=== PATIENT | female | born 1990 | race African-American/Black ===

== ENCOUNTER 2016-10-28 23:31 | Emergency (ER) | payer MEDICAID ==
[~2016-10-28] VITALS: Ht 160 cm; Wt 59.0 kg
[2016-10-28 23:42] VITALS: Ht 160 cm; Wt 59.0 kg
--- NOTE | 2016-10-29 02:52 | ERA ---
ER Documentation Chief Complaint Date/Time DATE: 10/29/16 TIME: 02:51 Chief Complaint Depression HPI The patient is a 26-year-old female, presenting to the ER because of depression. She is not sure when asked whether she is suicidal. She was admitted to psychiatric hospital about 10 days ago where she was discharged with Zoloft. He complains that Zoloft do not help her. Auditory, visual hallucination, headache, fever, neck pain, chest pain, abdominal pain, vomiting , diarrhea, constipation. She does smoke socially, denies drinking illicit drug Past medical history: Bipolar disorder, depression Past surgical history: ROS All systems reviewed and are negative except as per history of present illness. Medications Home Meds No Active Prescriptions or Reported Meds Allergies Allergies: Coded Allergies: aripiprazole (Verified Allergy, Intermediate, 10/16/16) TONGUE SWELLS acetaminophen (Verified Allergy, Unknown, 10/16/16) haloperidol (Verified Allergy, Unknown, 10/16/16) fluphenazine (Verified Adverse Reaction, Intermediate, 10/16/16) TONGUE SWELLS PMhx/Soc History of Surgery: Yes (C SECTION ) Anesthesia Reaction: No Hx Neurological Disorder: No Hx Respiratory Disorders: Yes (ASTHMA) Hx Cardiac Disorders: No Hx Psychiatric Problems: Yes (BIPOLAR, DEPRESSION, ANXIETY) Hx Miscellaneous Medical Probl: No Hx Alcohol Use: No Hx Substance Use: No Hx Tobacco Use: Yes (1-2 PACKS/ DAY ) Smoking Status: Current every day smoker Physical Exam Vitals Vital Signs Date Time Temp Pulse Resp B/P Pulse Ox O2 Delivery O2 Flow Rate FiO2 10/28/16 23:42 98.4 61 18 110/51 100 Physical Exam Const: No acute distress. Head: Atraumatic. Eyes: Normal Conjunctiva. ENT: Normal External Ears, Nose and Mouth. Neck: Full range of motion. No meningismus. Resp: Clear to auscultation bilaterally. Cardio: Regular rate and rhythm, no murmurs. Abd: Soft, non distended, normal bowel sounds, non tender. Skin: No petechiae or rashes. Back: No midline or flank tenderness. Ext: No cyanosis, or edema. Neur: Awake and alert. No focal deficit Psych: Depressed and suicidal Departure Diagnosis: Primary Impression: Depression Additional Impression: Suicidal ideation Condition: Stable Comments She is awaiting for telepsychiatrist evaluation ISAIAS ESCOBEDO MD Oct 29, 2016 02:52
[2016-10-29 03:39] LABS: ADD UMIC NO; URINE BILIRUBIN (Dip) NEGATIVE (NEGATIVE); URINE BLOOD (Dip) NEGATIVE (NEGATIVE); URINE COLOR LT. YELLOW (YELLOW); URINE GLUCOSE (Dip) NEGATIVE (NEGATIVE); URINE KETONES (Dip) 40 (NEGATIVE); URINE LEUKOCYTE ESTERASE (Dip) NEGATIVE (NEGATIVE); URINE NITRITE (Dip) NEGATIVE (NEGATIVE); URINE TOTAL PROTEIN (Dip) NEGATIVE (NEGATIVE); URINE UROBILINOGEN (Dip) 0.2 E.U./dL (0.1-1.0)
[2016-10-29] MEDS ORDERED: OLAN5TAB5 PO ×2 (03:56→04:00)
[2016-10-29 04:08] VITALS: BP 116/56; PULSE 60; RESP 18
--- NOTE | 2016-10-29 04:13 | PSY ---
Date/Time of Note Date/Time of Note DATE: 10/29/16 TIME: 04:04 Psychiatric Subjective Eval Consent Pt consented to telemedicine: Yes Subjective Evaluation Patient location: emergency Chief Complaint: "i need medication for depression" denies si and hi Reason for consult: depression History of present illness patient is a 26 yo female with PPH of bipolar do who has been coming to the ER several times for similar complaint, she states that her boyfriend sent her to the ER because she was 'unstable ', she states that she has been feeling depressed and paranoid, denies hearing voices, states that she wants to be on medication for depression and anger, she denies any si or hi, she states that she has been feeling anxious but she sleeps well . she alert and oriented, logical and goal oriented. Past psychiatric history several past admissions Hospitalization: yes Family History denies Medical history Problems Medical Problems: (1) Abdominal pain Status: Acute (2) Asymptomatic bacteriuria during Status: Acute (3) Bipolar disorder Status: Acute (4) Cystitis Status: Acute (5) Depression Status: Acute (6) Depression Status: Acute (7) Depression Status: Acute (8) Depression Status: Acute (9) Depression Status: Acute (10) Depression Status: Acute (11) Depression Status: Acute (12) Depression Status: Acute (13) First trimester Status: Acute (14) Mood disorder Status: Acute (15) Suicidal ideation Status: Acute (16) Suicidal ideation Status: Acute (17) Suicidal ideation Status: Acute (18) Suicidal ideation Status: Acute (19) Suicidal ideation Status: Acute (20) Suicidal ideation Status: Acute (21) Suicidal ideation Status: Acute (22) Suicidal ideation Status: Acute Allergies: Coded Allergies: aripiprazole (Verified Allergy, Intermediate, 10/16/16) TONGUE SWELLS acetaminophen (Verified Allergy, Unknown, 10/16/16) haloperidol (Verified Allergy, Unknown, 10/16/16) fluphenazine (Verified Adverse Reaction, Intermediate, 10/16/16) TONGUE SWELLS Social History Marital status: single Level of education: hs DPA/Conservatorship: No Occupation/Correction: unemployed Psychiatric Objective Eval Review of Systems: Review of Systems: Not Applicable Physical Examination: Physical Examination: Applicable Sleep: Adequate Appetite: Adequate Energy: Adequate Interest: Adequate Mental Status Examination: Appearance: Groomed Eye Contact: Good Psychomotor Activity: Normal Behavior: Cooperative Speech: Clear AFFECT: Appropriate Mood: Depressed Though Process: Linear Thought Content: Delusions Suicidal: No Homicidal: No On 72 hour hold: No Orientation: x3 Cognition: Alert Insight: Intact Judgement: Intact Attention Span: Intact Laboratory Results Laboratory Tests Test 10/29/16 02:53 Urine Bilirubin NEGATIVE Urine Clarity CLEAR Urine Color LT. YELLOW Urine Glucose NEGATIVE% Urine Hemoglobin NEGATIVE Urine Ketones 40 Urine Leukocyte Esterase NEGATIVE Urine Nitrite NEGATIVE Urine Specific [place] >=1.030 Urine Total Protein NEGATIVE Urine Urobilinogen 0.2 E.U./dL Urine pH 6.0 Assessment and Plan Assessment/Diagnosis [place] I: bipolar do nos [place] II: deferred [place] III: as per record [place] IV: poor social support [place] V: gaf 25 Recommendation/Plan Medication Management please give patient zyprexa 5 mg po bid Follow-up/Disposition In my opinion,for this patient, outpatient care is the least restrictive option. Based on available evidence, this condition CAN be safely treated at a lower level of care effective today. Patient is stable without clear and convincing evidence of imminent danger due to mental illness that require acute inpatient psychiatric care as the least restrictive alternative. Please discharge patient with referral for follow up to a outpatient mental health clinic for psychotherapy and medication. JAZMIN VILLALBA MD Oct 29, 2016 04:13
[2016-10-29 04:27] LABS: BARBITURATES Negative (NEGATIVE); BENZODIAZEPINES Negative (NEGATIVE); CANNABINOIDS Negative (NEGATIVE); COCAINE Negative (NEGATIVE); OPIATES Negative (NEGATIVE)
== END 2016-10-29 04:11 | disposition home or self-care (01) ==
LOC: FTE 23:31 → E/R 10-29 04:11
DX: F32.9 Major depressive disorder, single episode, unspecified (principal); F17.210 Nicotine dependence, cigarettes, uncomplicated; J45.909 Unspecified asthma, uncomplicated
CPT/HCPCS: 80307; 81003; Z7502; 99283

== ENCOUNTER 2016-11-08 23:24 | Emergency (ER) | payer MEDICAID ==
[~2016-11-08] VITALS: Ht 157.5 cm; Wt 54.0 kg
[~2016-11-08 23:24] MED LIST: OLAN5TAB5 PO
[2016-11-08 23:25] VITALS: Ht 157.5 cm; Wt 54.0 kg
[2016-11-09] MEDS ORDERED: CEFTRIAXONE 250 MG INJ IM ONE (00:30)
[2016-11-09] MEDS ORDERED: AZITHROMYCIN 250 MG TAB PO ONE (00:30)
[2016-11-09] MEDS ORDERED: LIDOCAINE 1% (MDV) 20 ML INJ SC ONE (00:30)
--- NOTE | 2016-11-09 01:51 | ERD ---
ER Documentation Chief Complaint Date/Time DATE: 11/09/16 TIME: 01:47 Chief Complaint pelvic pain w/dysuria x 2 weeks HPI Patient is a 26-year-old female who presents to the ED with bilateral pelvic pain that started yesterday, dysuria, CVA tenderness and abnormal vaginal discharge. She states that she has had unprotected sex since the beginning of this month. She states that her last normal menstrual period was 10/25/16. She complains of dysuria, burning and urgency x 10 days. She also complains of low back pain. Tactile fevers at home. She states that she has had a yellow vaginal discharge for the last month. She would like to get tested for STDs. She denies abdominal pain, nausea, vomiting or diarrhea. She denies chest pain , shortness of breath or difficulty breathing. She denies headache, dizziness. She denies rashes. Patient has been seen here multiple times for depression and SI, however she denies feeling depressed today or anxious. Denies suicidal ideations. Denies harming herself or others. ROS All systems reviewed and are negative except as per history of present illness. Medications Home Meds Active Scripts Doxycycline Hyclate* (Doxycycline Hyclate*) 100 Mg Tablet.dr, 100 MG PO BID for 7 Days, TAB Prov:JOLENE RAYMOND PA-C 11/09/16 Ciprofloxacin Hcl* (Ciprofloxacin Hcl*) 500 Mg Tablet, 500 MG PO BID for 7 Days , TAB Prov:JOLENE RAYMOND PA-C 11/09/16 Phenazopyridine Hcl* (Pyridium*) 100 Mg Tab, 100 MG PO TID Y for URINARY PAIN, # 8 TAB Prov:JOLENE RAYMOND PA-C 11/09/16 Olanzapine* (Zyprexa*) 5 Mg Tablet, 5 MG PO BID WITH MEALS for 14 Days, TAB Prov:ISAIAS ESCOBEDO MD 10/29/16 Olanzapine* (Zyprexa*) 5 Mg Tablet, 5 MG PO BID, #14 TAB Prov:ISAIAS ESCOBEDO MD 10/29/16 Allergies Allergies: Coded Allergies: aripiprazole (Verified Allergy, Intermediate, 10/16/16) TONGUE SWELLS acetaminophen (Verified Allergy, Unknown, 10/16/16) haloperidol (Verified Allergy, Unknown, 10/16/16) fluphenazine (Verified Adverse Reaction, Intermediate, 10/16/16) TONGUE SWELLS PMhx/Soc History of Surgery: Yes (C SECTION ) Anesthesia Reaction: No Hx Neurological Disorder: No Hx Respiratory Disorders: Yes (ASTHMA) Hx Cardiac Disorders: No Hx Psychiatric Problems: Yes (BIPOLAR, DEPRESSION, ANXIETY) Hx Miscellaneous Medical Probl: No Hx Alcohol Use: No Hx Substance Use: No Hx Tobacco Use: Yes (1-2 PACKS/ DAY ) Smoking Status: Current every day smoker Physical Exam Vitals Vital Signs Date Time Temp Pulse Resp B/P Pulse Ox O2 Delivery O2 Flow Rate FiO2 11/09/16 03:32 101.6 70 18 116/70 100 Room Air 11/09/16 02:55 102.5 11/08/16 23:25 100.2 102 18 120/62 100 Physical Exam GENERAL: Well-developed, well-nourished female. Appears in mild distress. HEAD: Normocephalic, atraumatic. EYES: Pupils are equally reactive bilaterally. EOMs grossly intact. No conjunctival erythema. ENT: Moist mucous membranes. No uvula deviation. No kissing tonsils. No exudates. NECK: Supple. No lymphadenopathy or thyromegaly. No meningismus. negative kernig. negative brudinski. LUNG: Clear to auscultation bilaterally. No rhonchi, wheezing, rales or coarse breath sounds. HEART: Regular rate and rhythm. No murmurs, rubs or gallops. ABDOMEN: No scars, ecchymosis or rashes noted. Soft, nontender, and nondistended. Positive bowel sounds in all four quadrants. No rebound tenderness , no guarding. (-) McBurneys point tenderness. suprapubic tenderness. right CVA tenderness. PELVIC EXAM: yellow/green discharge, no petechiae on cervic. tenderness in bilateral pelvic area. no CMT BACK: No midline tenderness. Extremities: Equal pulses bilaterally. No peripheral clubbing, cyanosis or edema. No unilateral leg swelling. NEUROLOGIC: Alert and oriented. Moving all four extremities. 5/5 strength in all extremities. Normal speech. Steady gait. SKIN: Normal color. Warm and dry. No rashes or lesions. Capillary refill < 2 seconds Results 24 hrs Laboratory Tests Test 11/09/16 01:25 Urine Bacteria MANY Urine Bilirubin NEGATIVE Urine Clarity CLEAR Urine Color LT. YELLOW Urine Glucose NEGATIVE% Urine Hemoglobin 2+ Urine Ketones NEGATIVE Urine Leukocyte Esterase 3+ Urine Microscopic RBC 25-50/HPF Urine Microscopic WBC >200/HPF Urine Nitrite POSITIVE Urine Specific [place] 1.015 Urine Squamous Epithelial Cells MODERATE Urine Total Protein 1+ Urine Urobilinogen 1.0 E.U./dL Urine pH 7.0 Current Medications Medications (Trade) Dose Ordered Sig/Kae Route PRN Reason Start Time Stop Time Status Last Admin Dose Admin Ceftriaxone Sodium (Rocephin) 250 mg ONCE ONCE IM 11/09/16 00:30 11/09/16 00:31 DC 11/09/16 01:18 Lidocaine (Xylocaine 1% (Mdv) 20 ml) 20 ml ONCE ONCE SC 11/09/16 00:30 11/09/16 00:31 DC 11/09/16 01:19 Azithromycin (Zithromax) 1,000 mg ONCE ONCE PO 11/09/16 00:30 11/09/16 00:31 DC 11/09/16 00:32 Ketorolac Tromethamine (Toradol) 60 mg ONCE STAT IM 11/09/16 02:59 11/09/16 03:00 DC 11/09/16 03:07 Procedures/MDM ER COURSE: I kept the patient and/or family informed of laboratory and diagnostic imaging results throughout the emergency room course. EKG, MONITORS, & DIAGNOSTIC IMAGING: [place] [id number] Radiology Main Line: [phone] DIAGNOSTIC IMAGING REPORT Patient: JAMMIE KILPATRICK : 1990 Age: 26 Sex: F MR #: [id number] DOS: 11/09/16 0021 Ordering MD: JOLENE RAYMOND PA-C Location: [facility] Room/Bed: PROCEDURE: ULTRASOUND PELVIS CLINICAL INDICATION: 26-year-old female with pelvic pain. TECHNIQUE: Multiple sonographic images of the pelvis were obtained utilizing a transabdominal and endovaginal technique. The images were reviewed on a PACS workstation. COMPARISON: None. FINDINGS: The uterus is visualized and measures 7.3 x 3.0 x 3.6 cm. The endometrial echo complex is within normal limits and measures 2.3 mm. There is mild free fluid within the cul-de-sac. The right ovary has a normal echotexture and measures 3.2 x 1.4 x 2.6 cm. The left ovary has a normal echotexture and measures 3.5 x 2.4 x 2.7 cm. There is a left ovarian follicular cyst present measuring 16 x 9 x 16 mm. There is flow identified within the ovaries bilaterally. No adnexal masses are noted. IMPRESSION: 1. Mildly prominent left ovarian follicular cyst. 2. Mild free fluid. .Rome Barba MD, Date Time Electronically viewed and signed by .Rome Barba MD, on 11/09/2016 02:13 .M/ CC: JOLENE RAYMOND PAElayne MEDICATIONS: Rocephin, azithromycin patient tolerated occasional well with no adverse reaction LAB INTERPRETATION: Urine test was negative. Urine showed positive nitrites, 3+ leukocytes MEDICAL DECISION MAKING: This is a 26-year-old female who presents with pelvic pain, urinary symptoms and vaginal discharge. Vital signs were reviewed. Patient is afebrile. Patient is not hypoxic. She has a UTI and cervicitis. Low suspicion for ovarian torsion, PID, tuboovarian abscess, ectopic , bowel obstruction, pyelonephritis,appendicitis, UTI, nephroliathisis, septic stone, obstructed stone. Low suspicion for ectopic , , molar , endometriosis, PID, placenta previa, placenta abruptia, preeclampsia, eclampsia , anemia, endometritis. i have consulted with Dr. Valadez regarding this patient who reviewed her labs. Patient does not need to be admitted at this time and no blood work is needed. Dr. Valadez states to send patient home with docyclicine and ciprofloxacin, pending gonorrhea chlamydia results. DISCHARGE: At this time, patient is stable for discharge and outpatient management with no new complaints during the ER course. Patient was sent home with doxycycline and ciprofloxacin. Patient will be discharged home with instructions to recheck for new or worsening symptoms such as fever, nausea, weakness, LOC and to follow up with primary care in the next 1-2 days. Patient was advised to return to the ER for any new or worsening symptoms. Plan was discussed and patient and/or family understands and agrees. Home instructions were given. Departure Diagnosis: Primary Impression: Cervicitis Condition: Stable JOLENE RAYMOND PA-C Nov 09, 2016 01:51
[2016-11-09 01:56] LABS: ADD UMIC YES; URINE BILIRUBIN (Dip) NEGATIVE (NEGATIVE); URINE BLOOD (Dip) 2+ (NEGATIVE); URINE COLOR LT. YELLOW (YELLOW); URINE GLUCOSE (Dip) NEGATIVE (NEGATIVE); URINE KETONES (Dip) NEGATIVE (NEGATIVE); URINE LEUKOCYTE ESTERASE (Dip) 3+ (NEGATIVE); URINE NITRITE (Dip) POSITIVE (NEGATIVE); URINE TOTAL PROTEIN (Dip) 1+ (NEGATIVE); URINE UROBILINOGEN (Dip) 1.0 E.U./dL (0.1-1.0)
[2016-11-09] MEDS ORDERED: CIPR500T4 PO ×2 (02:03→02:21)
[2016-11-09 02:04] LABS: BACTERIA,URINE MANY; SQUAMOUS EPITHELIAL CELL,UR MODERATE; URINE RBCS 25-50 /HPF ([, 0])
[2016-11-09] MEDS ORDERED: PHEN-537 PO (02:04)
--- NOTE | 2016-11-09 02:13 | RADRPT ---
PROCEDURE: ULTRASOUND PELVIS CLINICAL INDICATION: 26-year-old female with pelvic pain. TECHNIQUE: Multiple sonographic images of the pelvis were obtained utilizing a transabdominal and endovaginal technique. The images were reviewed on a PACS workstation. COMPARISON: None. FINDINGS: The uterus is visualized and measures 7.3 x 3.0 x 3.6 cm. The endometrial echo complex is within nor mal limits and measures 2.3 mm. There is mild free fluid within the cul-de-sac. The right ovary has a normal echotexture and measures 3.2 x 1.4 x 2.6 cm. The left ovary has a normal echotexture and m easures 3.5 x 2.4 x 2.7 cm. There is a left ovarian follicular cyst present measuring 16 x 9 x 16 m m. There is flow identified within the ovaries bilaterally. No adnexal masses are noted. IMPRESSION: 1. Mildly prominent left ovarian follicular cyst. 2. Mild free fluid. .Rome Barba MD, MD Date Time Electronically viewed and signed by .Rome Barba MD, on 11/09/2016 02:13 .M/
[2016-11-09] MEDS ORDERED: DOXY100T20 PO (02:21)
[2016-11-09] MEDS ORDERED: KETOROLAC 60 MG INJ IM STA (02:59)
[2016-11-09 03:32] VITALS: BP 116/70; PULSE 70; RESP 18; TEMP 101.6
== END 2016-11-09 03:33 | disposition home or self-care (01) ==
LOC: FTE 23:24
DX: N72 Inflammatory disease of cervix uteri (principal); J45.909 Unspecified asthma, uncomplicated; F17.210 Nicotine dependence, cigarettes, uncomplicated
CPT/HCPCS: 76830; 76856; 81001; 96372; J0696; J1885; Z7502; Z7610; 81003

== ENCOUNTER 2016-11-26 00:03 | Emergency (ER) | payer MEDICAID ==
[~2016-11-26] VITALS: Ht 157.5 cm; Wt 45.0 kg
[~2016-11-26 00:03] MED LIST changes: +CIPR500T4 PO; +DOXY100T20 PO; +PHEN-537 PO
[2016-11-26 00:11] VITALS: Ht 157.5 cm; Wt 45.0 kg
--- NOTE | 2016-11-26 03:41 | ERA ---
ER Documentation Chief Complaint Date/Time DATE: 11/26/16 TIME: 03:41 Chief Complaint wants meds for for in March The patient is a 26-year-old female, presenting to the ER because of depression. She is suicidal. She complains that Zoloft do not help her. She denies auditory, visual hallucination, headache, fever, neck pain, chest pain, abdominal pain, vomiting, diarrhea, constipation. She does smoke socially, denies drinking illicit drug Past medical history: Bipolar disorder, depression Past surgical history: C-sectio ROS All systems reviewed and are negative except as per history of present illness. Medications Home Meds Active Scripts Doxycycline Hyclate* (Doxycycline Hyclate*) 100 Mg Tablet.dr, 100 MG PO BID for 7 Days, TAB Prov:JOLENE RAYMOND PA-C 11/09/16 Ciprofloxacin Hcl* (Ciprofloxacin Hcl*) 500 Mg Tablet, 500 MG PO BID for 7 Days , TAB Prov:JOLENE RAYMOND PA-C 11/09/16 Phenazopyridine Hcl* (Pyridium*) 100 Mg Tab, 100 MG PO TID Y for URINARY PAIN, # 8 TAB Prov:JOLENE RAYMOND PA-C 11/09/16 Olanzapine* (Zyprexa*) 5 Mg Tablet, 5 MG PO BID WITH MEALS for 14 Days, TAB Prov:ISAIAS ESCOBEDO MD 10/29/16 Olanzapine* (Zyprexa*) 5 Mg Tablet, 5 MG PO BID, #14 TAB Prov:ISAIAS ESCOBEDO MD 10/29/16 Allergies Allergies: Coded Allergies: aripiprazole (Verified Allergy, Intermediate, 10/16/16) TONGUE SWELLS acetaminophen (Verified Allergy, Unknown, 10/16/16) haloperidol (Verified Allergy, Unknown, 10/16/16) fluphenazine (Verified Adverse Reaction, Intermediate, 10/16/16) TONGUE SWELLS PMhx/Soc History of Surgery: Yes (C SECTION ) Anesthesia Reaction: No Hx Neurological Disorder: No Hx Respiratory Disorders: Yes (asthma) Hx Cardiac Disorders: No Hx Psychiatric Problems: Yes (bipolar) Hx Miscellaneous Medical Probl: No Hx Alcohol Use: No Hx Substance Use: No Hx Tobacco Use: Yes Smoking Status: Current some day smoker Physical Exam Vitals Vital Signs Date Time Temp Pulse Resp B/P Pulse Ox O2 Delivery O2 Flow Rate FiO2 11/26/16 00:11 98.3 58 16 116/59 100 Physical Exam Const: No acute distress. Head: Atraumatic. Eyes: Normal Conjunctiva. ENT: Normal External Ears, Nose and Mouth. Neck: Full range of motion. No meningismus. Resp: Clear to auscultation bilaterally. Cardio: Regular rate and rhythm, no murmurs. Abd: Soft, non distended, normal bowel sounds, non tender. Skin: No petechiae or rashes. Back: No midline or flank tenderness. Ext: No cyanosis, or edema. Neur: Awake and alert. No focal deficit Psych: Depressed and suicidal. Result Diagram: 11/26/1639911/26/16399 Results 24 hrs Laboratory Tests Test 11/26/16 04:00 Acetaminophen Level < 10.0ug/ml Alanine Aminotransferase (ALT/SGPT) 46IU/L Albumin 4.3g/dl Albumin/Globulin Ratio 1.13 Alkaline Phosphatase 76IU/L Anion Gap 17 Aspartate Amino Transf (AST/SGOT) 43IU/L Basophils # 0.010^3/ul Basophils % 0.5% Blood Morphology Comment Blood Urea Nitrogen 14mg/dl Calcium Level 9.4mg/dl Carbon Dioxide Level 26mmol/L Chloride Level 106mmol/L Creatinine 0.65mg/dl Direct Bilirubin 0.00mg/dl Eosinophils # 0.010^3/ul Eosinophils % 0.5% Ethyl Alcohol Level < 10.0mg/dl Globulin 3.80g/dl Glucose Level 95mg/dl Hematocrit 40.1% Hemoglobin 13.1g/dl Indirect Bilirubin 0.0mg/dl Lymphocytes # 2.810^3/ul Lymphocytes % 39.0% Mean Corpuscular Hemoglobin 25.4pg Mean Corpuscular Hemoglobin Concent 32.6g/dl Mean Corpuscular Volume 77.9fl Mean Platelet Volume 10.6fl Monocytes # 0.410^3/ul Monocytes % 5.2% Neutrophils # 3.910^3/ul Neutrophils % 54.8% Nucleated Red Blood Cells # 0.010^3/ul Nucleated Red Blood Cells % 0.0/100WBC Platelet Count 78820^3/UL Potassium Level 3.7mmol/L Red Blood Count 5.1510^6/ul Red Cell Distribution Width 13.5% Salicylates Level < 1.0mg/dl Sodium Level 145mmol/L Total Bilirubin 0.0mg/dl Total Protein 8.1g/dl White Blood Count 7.110^3/ul Procedures/MDM MEDICAL MAKING DECISION: The patient is a 26-year-old female, presenting with acute suicidal and depression. The differential diagnoses considered include but are not limited to psychosis, drug-induced psychosis, medical noncompliance , decompensated psychiatric illness Departure Diagnosis: Primary Impression: Suicidal ideation Additional Impression: Depression Condition: Good Comments Consultation: She was evaluated by telepsychiatrist Dr Gonzales who recommended discharge the patient with Zyprexa I discussed the findings with the patient. I advised the patient to follow-up with the primary physician in about 1-2 days, sooner if needed and return if any concern. ISAIAS ESCOBEDO MD Nov 26, 2016 03:41
[2016-11-26 04:44] LABS: BASOPHILS % 0.5 % (0.0-2.0); CONDITION 1; EOSINOPHILS % 0.5 % (0.0-7.0); HEMATOCRIT 40.1 % (37.0-47.0); HEMOGLOBIN 13.1 g/dl (12.0-16.0); LH ANALYZER COMMENTS 1; LYMPHOCYTES # 2.8 10^3/ul (0.8-2.9); MEAN CORPUSCULAR HEMOGLOBIN 25.4 pg (29.0-33.0); MEAN CORPUSCULAR HGB CONC 32.6 g/dl (32.0-37.0); MEAN CORPUSCULAR VOLUME 77.9 fl (82.0-101.0); MEAN PLATELET VOLUME 10.6 fl (7.4-10.4); MONOCYTE # 0.4 10^3/ul (0.3-0.9); MONOCYTES % 5.2 % (0.0-11.0); NEUTROPHIL # 3.9 10^3/ul (1.6-7.5); NEUTROPHILS % 54.8 % (39.0-77.0); PLATELET COUNT 279 10^3/UL (140-440); RED BLOOD COUNT 5.15 10^6/ul (4.20-5.40); RED CELL DISTRIBUTION WIDTH 13.5 % (11.5-14.5); UNCORRECTED WBC 7.1 10^3/ul (4.8-10.8); WHITE BLOOD COUNT 7.1 10^3/ul (4.8-10.8)
[2016-11-26 04:46] LABS: ALBUMIN 4.3 g/dl (3.3-4.9); CHLORIDE 106 mmol/L (97-110); SODIUM 145 mmol/L (135-144)
[2016-11-26 04:47] LABS: POTASSIUM 3.7 mmol/L (3.5-5.1)
[2016-11-26 04:48] LABS: CREATININE 0.65 mg/dl (0.44-1.00)
[2016-11-26 04:49] LABS: ALANINE AMINOTRANSFERASE 46 IU/L (13-69); ALBUMIN/GLOBULIN RATIO 1.13; ALKALINE PHOSPHATASE 76 IU/L (42-121); ANION GAP 17 (8-16); ASPARTATE AMINO TRANSFERASE 43 IU/L (15-46); BLOOD UREA NITROGEN 14 mg/dl (7-20); CALCIUM 9.4 mg/dl (8.4-10.2); CARBON DIOXIDE 26 mmol/L (21-31); GLUCOSE 95 mg/dl (70-220); TOTAL PROTEIN 8.1 g/dl (6.1-8.1)
[2016-11-26 05:31] LABS: ACETAMINOPHEN < 10.0 ug/ml (10.0-30.0); SALICYLATE < 1.0 mg/dl (5.0-30.0)
[2016-11-26 05:32] LABS: ETHANOL < 10.0 mg/dl
[2016-11-26] MEDS ORDERED: OLAN2.5T4 PO (05:37)
[2016-11-26 05:47] VITALS: BP 113/65; PULSE 81; RESP 18
[2016-11-26 06:40] LABS: BARBITURATES Negative (NEGATIVE); BENZODIAZEPINES Negative (NEGATIVE); CANNABINOIDS Negative (NEGATIVE); COCAINE Negative (NEGATIVE); OPIATES Negative (NEGATIVE)
[2016-11-26 06:58] LABS: ADD UMIC YES; URINE BILIRUBIN (Dip) NEGATIVE (NEGATIVE); URINE BLOOD (Dip) NEGATIVE (NEGATIVE); URINE COLOR LT. YELLOW (YELLOW); URINE GLUCOSE (Dip) NEGATIVE (NEGATIVE); URINE KETONES (Dip) NEGATIVE (NEGATIVE); URINE LEUKOCYTE ESTERASE (Dip) TRACE (NEGATIVE); URINE NITRITE (Dip) NEGATIVE (NEGATIVE); URINE TOTAL PROTEIN (Dip) NEGATIVE (NEGATIVE); URINE UROBILINOGEN (Dip) 0.2 E.U./dL (0.1-1.0)
--- NOTE | 2016-11-26 08:19 | PSY ---
Date/Time of Note Date/Time of Note DATE: 11/26/16 TIME: 08:12 Psychiatric Subjective Eval Subjective Evaluation Patient location: emergency Chief Complaint: wants meds for for in March Reason for consult: depression x 4 days, hx of SI 2 years ago. History of present illness patient is a 26 yo female with PPH of bipolar do who came to the ER to get some change in her meds due to feeling depressed, she states that her doctor added lithium 450 mg at bed time one week ago but states that she is not feeling better she has been feeling depressed with low energy, little interest in life, insomnia, but drowsiness during the day since on lithium, she denies any currenr manic or psychotic symptoms, but has had manic episode before, she denies any si or hi, denies any drug or alcohol use. Medical history Problems Medical Problems: (1) Abdominal pain Status: Acute (2) Asymptomatic bacteriuria during Status: Acute (3) Bipolar disorder Status: Acute (4) Cervicitis Status: Acute (5) Cystitis Status: Acute (6) Depression Status: Acute (7) Depression Status: Acute (8) Depression Status: Acute (9) Depression Status: Acute (10) Depression Status: Acute (11) Depression Status: Acute (12) Depression Status: Acute (13) Depression Status: Acute (14) Depression Status: Acute (15) First trimester Status: Acute (16) Mood disorder Status: Acute (17) Suicidal ideation Status: Acute (18) Suicidal ideation Status: Acute (19) Suicidal ideation Status: Acute (20) Suicidal ideation Status: Acute (21) Suicidal ideation Status: Acute (22) Suicidal ideation Status: Acute (23) Suicidal ideation Status: Acute (24) Suicidal ideation Status: Acute (25) Suicidal ideation Status: Acute (26) UTI (urinary tract infection) Status: Acute Allergies: Coded Allergies: aripiprazole (Verified Allergy, Intermediate, 10/16/16) TONGUE SWELLS acetaminophen (Verified Allergy, Unknown, 10/16/16) haloperidol (Verified Allergy, Unknown, 10/16/16) fluphenazine (Verified Adverse Reaction, Intermediate, 10/16/16) TONGUE SWELLS Substance Abuse Substance use: No known substance abuse Social History Marital status: single Level of education: hs DPA/Conservatorship: No Occupation/Detention: unemployed Psychiatric Objective Eval Review of Systems: Review of Systems: Not Applicable Physical Examination: Physical Examination: Applicable Sleep: Initial Appetite: Decreased Energy: Decreased Mental Status Examination: Appearance: Groomed Eye Contact: Good Psychomotor Activity: Normal Behavior: Cooperative Speech: Clear Mood: Depressed Though Process: Linear Thought Content: Normal Suicidal: No Homicidal: No On 72 hour hold: No Orientation: x3 Cognition: Alert Insight: Intact Judgement: Intact Attention Span: Intact Laboratory Results Laboratory Tests Test 11/26/16 04:00 11/26/16 04:14 Acetaminophen Level < 10.0ug/ml Alanine Aminotransferase (ALT/SGPT) 46IU/L Albumin 4.3g/dl Albumin/Globulin Ratio 1.13 Alkaline Phosphatase 76IU/L Anion Gap 17 Aspartate Amino Transf (AST/SGOT) 43IU/L Basophils # 0.010^3/ul Basophils % 0.5% Blood Morphology Comment Blood Urea Nitrogen 14mg/dl Calcium Level 9.4mg/dl Carbon Dioxide Level 26mmol/L Chloride Level 106mmol/L Creatinine 0.65mg/dl Direct Bilirubin 0.00mg/dl Eosinophils # 0.010^3/ul Eosinophils % 0.5% Ethyl Alcohol Level < 10.0mg/dl Globulin 3.80g/dl Glucose Level 95mg/dl Hematocrit 40.1% Hemoglobin 13.1g/dl Indirect Bilirubin 0.0mg/dl Lymphocytes # 2.810^3/ul Lymphocytes % 39.0% Mean Corpuscular Hemoglobin 25.4pg Mean Corpuscular Hemoglobin Concent 32.6g/dl Mean Corpuscular Volume 77.9fl Mean Platelet Volume 10.6fl Monocytes # 0.410^3/ul Monocytes % 5.2% Neutrophils # 3.910^3/ul Neutrophils % 54.8% Nucleated Red Blood Cells # 0.010^3/ul Nucleated Red Blood Cells % 0.0/100WBC Platelet Count 57386^3/UL Potassium Level 3.7mmol/L Red Blood Count 5.1510^6/ul Red Cell Distribution Width 13.5% Salicylates Level < 1.0mg/dl Sodium Level 145mmol/L Total Bilirubin 0.0mg/dl Total Protein 8.1g/dl White Blood Count 7.110^3/ul Urine Amphetamines Screen Negative Urine Barbiturates Negative Urine Benzodiazepines Screen Negative Urine Bilirubin NEGATIVE Urine Cannabinoids Negative Urine Clarity CLEAR Urine Cocaine Screen Negative Urine Color LT. YELLOW Urine Epithelial Cells FEW Urine Glucose NEGATIVE% Urine Hemoglobin NEGATIVE Urine Ketones NEGATIVE Urine Leukocyte Esterase TRACE Urine Microscopic RBC 2-5/HPF Urine Microscopic WBC 5-10/HPF Urine Nitrite NEGATIVE Urine Opiates Screen Negative Urine Specific [place] 1.020 Urine Total Protein NEGATIVE Urine Urobilinogen 0.2 E.U./dL Urine pH 6.0 Assessment and Plan Assessment/Diagnosis [place] I: bipolar do nos [place] II: deferred [place] III: as per record [place] IV: poor social support [place] V: gaf 65 Recommendation/Plan Medication Management zyprexa 2.5 mg po qhs for 2 weeks Follow-up/Disposition In my opinion,for this patient, outpatient care is the least restrictive option. Based on available evidence, this condition CAN be safely treated at a lower level of care effective today. Patient is stable without clear and convincing evidence of imminent danger due to mental illness that require acute inpatient psychiatric care as the least restrictive alternative. Please discharge patient with referral for follow up to a outpatient mental health clinic for psychotherapy and medication. JAZMIN VILLALBA MD Nov 26, 2016 08:19
== END 2016-11-26 05:47 | disposition home or self-care (01) ==
LOC: FTE 00:03 → E/R 05:47
DX: F32.9 Major depressive disorder, single episode, unspecified (principal); J45.909 Unspecified asthma, uncomplicated; F17.210 Nicotine dependence, cigarettes, uncomplicated; R45.851 Suicidal ideations
CPT/HCPCS: 36415; 80053; 80306; 80307; 81001; 85025; Z7502; 81003; 99283

== ENCOUNTER 2016-12-12 21:07 | Emergency (ER) | payer MEDICAID ==
[~2016-12-12] VITALS: Ht 157.5 cm; Wt 56.0 kg
[~2016-12-12 21:07] MED LIST changes: +OLAN2.5T4 PO
[2016-12-12 21:12] VITALS: Ht 157.5 cm; Wt 56.0 kg
[2016-12-12] MEDS ORDERED: SERT100T PO (21:46)
[2016-12-12] MEDS ORDERED: LIT300 PO (21:49)
[2016-12-12] MEDS ORDERED: LORAZEPAM 1 MG TAB PO ONE (22:00)
[2016-12-12 22:31] LABS: CHLORIDE 106 mmol/L (97-110)
[2016-12-12 22:32] LABS: ALBUMIN 4.2 g/dl (3.3-4.9); POTASSIUM 3.7 mmol/L (3.5-5.1); SODIUM 145 mmol/L (135-144)
[2016-12-12 22:35] LABS: ALANINE AMINOTRANSFERASE 30 IU/L (13-69); ALKALINE PHOSPHATASE 91 IU/L (42-121); ASPARTATE AMINO TRANSFERASE 19 IU/L (15-46); BLOOD UREA NITROGEN 9 mg/dl (7-20); CALCIUM 9.2 mg/dl (8.4-10.2); CARBON DIOXIDE 28 mmol/L (21-31); CREATININE 0.78 mg/dl (0.44-1.00); GLUCOSE 81 mg/dl (70-220); TOTAL PROTEIN 7.3 g/dl (6.1-8.1)
[2016-12-12 22:47] LABS: HEMATOCRIT 38.1 % (37.0-47.0); HEMOGLOBIN 12.6 g/dl (12.0-16.0); MEAN CORPUSCULAR HEMOGLOBIN 25.3 pg (29.0-33.0); MEAN CORPUSCULAR VOLUME 76.8 fl (82.0-101.0); MEAN PLATELET VOLUME 11.3 fl (7.4-10.4); NUCLEATED RED BLOOD CELLS% 3.2 /100WBC (0.0-0.0); PLATELET COUNT 206 10^3/UL (140-440); RED BLOOD COUNT 4.96 10^6/ul (4.20-5.40); RED CELL DISTRIBUTION WIDTH 13.4 % (11.5-14.5); UNCORRECTED WBC 11.5 10^3/ul (4.8-10.8); WHITE BLOOD COUNT 11.5 10^3/ul (4.8-10.8)
[2016-12-12 22:50] LABS: CONDITION 1; NUCLEATED RED BLOOD CELLS # 0.4 10^3/ul (0.0-0.0); SUSPECT 1
[2016-12-12 22:51] LABS: LH ANALYZER COMMENTS 1
[2016-12-12 23:01] LABS: ALBUMIN/GLOBULIN RATIO 1.35; ANION GAP 15 (8-16); ETHANOL < 10.0 mg/dl
[2016-12-12 23:29] LABS: ACETAMINOPHEN < 10.0 ug/ml (10.0-30.0); SALICYLATE < 1.0 mg/dl (5.0-30.0)
[2016-12-13] VITALS: TEMP 96.7
--- NOTE | 2016-12-13 01:10 | ERA ---
ER Documentation Chief Complaint Date/Time DATE: 12/13/16 TIME: 01:05 Chief Complaint Depressed x1 week and feels like the meds are not working HPI 26-year-old woman with a history of depression states she has been feeling more depressed and irritable lately. She has a 7-month-old baby at home and states it is not good for the baby to be around her. She has been having thoughts of suicide despite using her medications as prescribed. She denies chest pain or shortness of breath, no fevers or chills, no vomiting or diarrhea. She has been seen and evaluated multiple times in this emergency department and has been successfully managed both as an and outpatient after tele-psychiatry evaluation and is a [facility] inpatient. ROS All systems reviewed and are negative except as per history of present illness. Medications Home Meds Reported Medications [place] Carbonate* ([place]*) 300 Mg Cap, 300 MG PO BID, CAP 12/12/16 Sertraline Hcl* (Zoloft*) 100 Mg Tablet, 100 MG PO QAM, #30 TAB 12/12/16 Discontinued Scripts Olanzapine* (Zyprexa*) 2.5 Mg Tablet, 2.5 MG PO bed time, #14 TAB Prov:ISAIAS ESCOBEDO MD 11/26/16 Doxycycline Hyclate* (Doxycycline Hyclate*) 100 Mg Tablet.dr, 100 MG PO BID for 7 Days, TAB Prov:JOLENE RAYMONDC 11/09/16 Ciprofloxacin Hcl* (Ciprofloxacin Hcl*) 500 Mg Tablet, 500 MG PO BID for 7 Days , TAB Prov:JOLENE RAYMONDC 11/09/16 Phenazopyridine Hcl* (Pyridium*) 100 Mg Tab, 100 MG PO TID Y for URINARY PAIN, # 8 TAB Prov:JOLENE RAYMOND PA-C 11/09/16 Olanzapine* (Zyprexa*) 5 Mg Tablet, 5 MG PO BID WITH MEALS for 14 Days, TAB Prov:ISAIAS ESCOBEDO MD 10/29/16 Olanzapine* (Zyprexa*) 5 Mg Tablet, 5 MG PO BID, #14 TAB Prov:ISAIAS ESCOBEDO MD 10/29/16 Allergies Allergies: Coded Allergies: aripiprazole (Verified Allergy, Intermediate, 12/12/16) TONGUE SWELLS acetaminophen (Verified Allergy, Unknown, 12/12/16) haloperidol (Verified Allergy, Unknown, 12/12/16) fluphenazine (Verified Adverse Reaction, Intermediate, 12/12/16) TONGUE SWELLS PMhx/Soc Depression History of Surgery: Yes (C SECTION x1) Anesthesia Reaction: No Hx Neurological Disorder: No Hx Respiratory Disorders: Yes (asthma) Hx Cardiac Disorders: No Hx Psychiatric Problems: Yes (bipolar depression, depression, suicidal attempt.) Hx Miscellaneous Medical Probl: No Hx Alcohol Use: No Hx Substance Use: No Hx Tobacco Use: Yes Smoking Status: Current some day smoker FmHx Family History: No diabetes Physical Exam Vitals Vital Signs Date Time Temp Pulse Resp B/P Pulse Ox O2 Delivery O2 Flow Rate FiO2 12/12/16 21:12 96.3 56 18 109/58 100 Physical Exam GENERAL: Well-developed, well-nourished, well-hydrated, depressed affect HEENT: Moist mucous membranes, pink conjunctiva, no cervical spine tenderness or step-off deformities, no goiter, no jaundice or icterus, extraocular movements intact without pain. No submandibular induration, and no pharyngeal erythema NEURO: Alert and oriented 3, cranial nerves II through XII intact bilaterally, pupils equal round reactive to light, no focal deficits or facial asymmetry, sensation intact distally Strength 5/5 in upper and lower extremities bilaterally CARDIAC: Regular rate and rhythm, no murmurs rubs or gallops LUNGS: Clear bilaterally no wheezing crackles or stridor ABDOMEN: Soft nontender, no guarding, no rigidity, no rebound, no psoas sign no obturator sign. Normoactive bowel sounds SKIN: Warm and dry to touch, no abrasions, contusions, or hematomas, no lacerations, no ecchymosis, no target lesions, and without ulcers EXTREMITIES: No clubbing cyanosis or edema, calves are bilaterally symmetrical, no Homans sign, no popliteal cord sign. Distal pulses equal and bilateral PSYCH: Depressed affect Result Diagram: 12/12/16219912/12/162199 Results 24 hrs Laboratory Tests Test 12/12/16 22:00 Acetaminophen Level < 10.0ug/ml Alanine Aminotransferase (ALT/SGPT) 30IU/L Albumin 4.2g/dl Albumin/Globulin Ratio 1.35 Alkaline Phosphatase 91IU/L Anion Gap 15 Aspartate Amino Transf (AST/SGOT) 19IU/L Basophils # Pending Basophils % Pending Blood Morphology Comment Blood Urea Nitrogen 9mg/dl Calcium Level 9.2mg/dl Carbon Dioxide Level 28mmol/L Chloride Level 106mmol/L Creatinine 0.78mg/dl Direct Bilirubin 0.00mg/dl Eosinophils # Pending Eosinophils % Pending Ethyl Alcohol Level < 10.0mg/dl Globulin 3.10g/dl Glucose Level 81mg/dl Hematocrit 38.1% Hemoglobin 12.6g/dl Indirect Bilirubin 0.0mg/dl Lymphocytes # Pending Lymphocytes % Pending Mean Corpuscular Hemoglobin 25.3pg Mean Corpuscular Hemoglobin Concent 33.0g/dl Mean Corpuscular Volume 76.8fl Mean Platelet Volume 11.3fl Monocytes # Pending Monocytes % Pending Neutrophils # Pending Neutrophils % Pending Nucleated Red Blood Cells # Pending Nucleated Red Blood Cells % Pending Platelet Count 82656^3/UL Potassium Level 3.7mmol/L Red Blood Count 4.9610^6/ul Red Cell Distribution Width 13.4% Salicylates Level < 1.0mg/dl Sodium Level 145mmol/L Total Bilirubin 0.0mg/dl Total Protein 7.3g/dl White Blood Count 11.510^3/ul Current Medications Medications (Trade) Dose Ordered Sig/Kae Route PRN Reason Start Time Stop Time Status Last Admin Dose Admin Lorazepam (Ativan) 1 mg ONCE ONCE PO 12/12/16 22:00 12/12/16 22:01 DC 12/12/16 22:25 Procedures/MDM Security one-to-one watch was established and tele-psychiatrist was consulted. I administered lorazepam 1 mg p.o. for the patient's symptoms. Tele-psychiatrist interviewed the patient and recommended transfer to [facility] facility and [facility] psychiatric hold CBC and electrolytes were unremarkable, test was negative, urine drug screen was negative, urine analysis was negative for infection. Alcohol, Tylenol, and aspirin levels were negative. Patient's behavioral symptoms have stabilized while in the department. Patient is medically cleared and appropriate for psychiatric evaluation and work up. No e/o neurologic, toxic, infectious, or metabolic cause. Departure Diagnosis: Primary Impression: Depression Qualified Code: F32.1 - Moderate single current episode of major depressive disorder Additional Impression: Suicidal ideation Condition: SANTO Francis MD Dec 13, 2016 01:10
[2016-12-13 01:43] LABS: LYMPHOCYTES # 1.5 10^3/ul (0.8-2.9); MONOCYTE # 0.7 10^3/ul (0.3-0.9); NEUTROPHIL # 9.3 10^3/ul (1.6-7.5)
--- NOTE | 2016-12-13 02:09 | PSY ---
Date/Time of Note Date/Time of Note DATE: 12/13/16 TIME: 00:38 Psychiatric Subjective Eval Consent Pt consented to telemedicine: Yes Subjective Evaluation Patient location: emergency Chief Complaint: Depressed x1 week and feels like the meds are not working Reason for consult: suicidal History of present illness patient is a 26 yo female with PPH Of depression and anxiety who comes to the ER very often for same complaint of "meds not working " and feeling " depressed and suicidal ". Tonight patient states that she has been feeling depressed, hopeless and helpless for days , cannot tell me why, she is drowsy during the interview, hard to keep her awake, states that she is suicidal and wants to kill herself by overdosing on medication, denies any manic or psychotic symptoms , no HI, denies any drug or alcohol use. Past psychiatric history no past suicidal attempt Hospitalization: yes Family History denies Medical history Problems Medical Problems: (1) Abdominal pain Status: Acute (2) Asymptomatic bacteriuria during Status: Acute (3) Bipolar disorder Status: Acute (4) Cervicitis Status: Acute (5) Cystitis Status: Acute (6) Depression Status: Acute (7) Depression Status: Acute (8) Depression Status: Acute (9) Depression Status: Acute (10) Depression Status: Acute (11) Depression Status: Acute (12) Depression Status: Acute (13) Depression Status: Acute (14) Depression Status: Acute (15) First trimester Status: Acute (16) Mood disorder Status: Acute (17) Suicidal ideation Status: Acute (18) Suicidal ideation Status: Acute (19) Suicidal ideation Status: Acute (20) Suicidal ideation Status: Acute (21) Suicidal ideation Status: Acute (22) Suicidal ideation Status: Acute (23) Suicidal ideation Status: Acute (24) Suicidal ideation Status: Acute (25) Suicidal ideation Status: Acute (26) UTI (urinary tract infection) Status: Acute Allergies: Coded Allergies: aripiprazole (Verified Allergy, Intermediate, 12/12/16) TONGUE SWELLS acetaminophen (Verified Allergy, Unknown, 12/12/16) haloperidol (Verified Allergy, Unknown, 12/12/16) fluphenazine (Verified Adverse Reaction, Intermediate, 12/12/16) TONGUE SWELLS Substance Abuse Substance use: No known substance abuse Social History Marital status: single Level of education: hs DPA/Conservatorship: No Occupation/Shelter: unemployed Psychiatric Objective Eval Review of Systems: Review of Systems: Not Applicable Physical Examination: Sleep: Insomnia Appetite: Decreased Energy: Decreased Interest: Decreased Mental Status Examination: Appearance: Disheveled Eye Contact: Poor Behavior: Cooperative Speech: Soft AFFECT: Flat Mood: Depressed, Anxious Though Process: Linear Thought Content: Normal Suicidal: Yes Homicidal: No On 72 hour hold: No Cognition: Drowsy Insight: Impared Judgement: Impared Attention Span: Distractible Laboratory Results Laboratory Tests Test 12/12/16 22:00 Acetaminophen Level < 10.0ug/ml Alanine Aminotransferase (ALT/SGPT) 30IU/L Albumin 4.2g/dl Albumin/Globulin Ratio 1.35 Alkaline Phosphatase 91IU/L Anion Gap 15 Aspartate Amino Transf (AST/SGOT) 19IU/L Blood Morphology Comment Blood Urea Nitrogen 9mg/dl Calcium Level 9.2mg/dl Carbon Dioxide Level 28mmol/L Chloride Level 106mmol/L Creatinine 0.78mg/dl Direct Bilirubin 0.00mg/dl Ethyl Alcohol Level < 10.0mg/dl Globulin 3.10g/dl Glucose Level 81mg/dl Hematocrit 38.1% Hemoglobin 12.6g/dl Indirect Bilirubin 0.0mg/dl Mean Corpuscular Hemoglobin 25.3pg Mean Corpuscular Hemoglobin Concent 33.0g/dl Mean Corpuscular Volume 76.8fl Mean Platelet Volume 11.3fl Platelet Count 79351^3/UL Potassium Level 3.7mmol/L Red Blood Count 4.9610^6/ul Red Cell Distribution Width 13.4% Salicylates Level < 1.0mg/dl Sodium Level 145mmol/L Total Bilirubin 0.0mg/dl Total Protein 7.3g/dl White Blood Count 11.510^3/ul Assessment and Plan Assessment/Diagnosis [place] I: mood do nos [place] II: deferred [place] III: as per record [place] IV: poor social support [place] V: gaf 25 Recommendation/Plan Follow-up/Disposition Please admit patient on unvoluntary status due to Danger to self, In my opinion, patient currently MEETS criterion for inpatient care and CANNOT be safely treated at a lower level of care today as evidenced by the following risk factors: Current and Recent Suicidal Ideation Intense feelings of hopelessness and lack of future orientation. Significant recent DETERIORATION in function, behavior and thought processes Non-Compliance with Outpatient Treatment Patient has failed outpatient and requires further inpatient assessment Medication changes require observation unavailable at a lower level of care. [id number] Recommendation: JAZMIN Rivera MD Dec 13, 2016 02:04
[2016-12-13 02:30] LABS: ADD UMIC NO; URINE BILIRUBIN (Dip) NEGATIVE (NEGATIVE); URINE BLOOD (Dip) NEGATIVE (NEGATIVE); URINE COLOR LT. YELLOW (YELLOW); URINE GLUCOSE (Dip) NEGATIVE (NEGATIVE); URINE KETONES (Dip) NEGATIVE (NEGATIVE); URINE LEUKOCYTE ESTERASE (Dip) NEGATIVE (NEGATIVE); URINE NITRITE (Dip) NEGATIVE (NEGATIVE); URINE TOTAL PROTEIN (Dip) NEGATIVE (NEGATIVE); URINE UROBILINOGEN (Dip) 0.2 E.U./dL (0.1-1.0)
[2016-12-13 02:47] LABS: BARBITURATES Negative (NEGATIVE); BENZODIAZEPINES Negative (NEGATIVE); CANNABINOIDS Negative (NEGATIVE); COCAINE Negative (NEGATIVE); OPIATES Negative (NEGATIVE)
[2016-12-13 11:36] VITALS: BP 125/75; PULSE 60; RESP 18
--- NOTE | 2016-12-13 13:37 | PSY ---
Date/Time of Note Date/Time of Note DATE: 12/13/16 TIME: 13:15 Psychiatric Subjective Eval Subjective Evaluation Patient location: emergency Chief Complaint: Depressed x1 week and feels like the meds are not working Reason for consult: suicidal History of present illness This is a 26 year old female who has been treated for bipolar disorder since she was 21. Her symptoms at that time were associated with psychosis, irritability, agitation and violent behavior. 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 She has been post for 8 months. She has been prescribed Reader and Zoloft with no clinical benefit. She has had several presentations to the ED with complaints of suicidal ideation. She was seen by Dr. Frank, who suggested that she be placed on a hold. She has been in the ED for 15 hours, and states that she would rather be home with the father and the baby which is more supportive and therapeutic environment. She denies any suicidal intent at this time. She was receptive to medication recommendations that I provided. She denied hallucinations or delusions. She denied any sleep disturbance. Past psychiatric history She was first hospitalized when she was 21. She was on a hold. She has been hospitalized on several occasions. Her manic symptoms are racing negative intrusive thoughts associated with decreased ability to sleep, agitation, episodes of rage seemingly not appropriate to the situation. Her episodes of depression were described as feeling severely depressed, with crying spells, anhedonia, social isolation and thoughts that life is not worth living. She has been prescribed a variety of antipsychotic medications, and states that she is allergic as her throat and tongue would swell. Hospitalization: yes Family History She is not aware of any family history. Medical history Problems Medical Problems: (1) Abdominal pain Status: Acute (2) Asymptomatic bacteriuria during Status: Acute (3) Bipolar disorder Status: Acute (4) Cervicitis Status: Acute (5) Cystitis Status: Acute (6) Depression Status: Acute (7) Depression Status: Acute (8) Depression Status: Acute (9) Depression Status: Acute (10) Depression Status: Acute (11) Depression Status: Acute (12) Depression Status: Acute (13) Depression Status: Acute (14) Depression Status: Acute (15) Depression Status: Acute (16) First trimester Status: Acute (17) Mood disorder Status: Acute (18) Suicidal ideation Status: Acute (19) Suicidal ideation Status: Acute (20) Suicidal ideation Status: Acute (21) Suicidal ideation Status: Acute (22) Suicidal ideation Status: Acute (23) Suicidal ideation Status: Acute (24) Suicidal ideation Status: Acute (25) Suicidal ideation Status: Acute (26) Suicidal ideation Status: Acute (27) Suicidal ideation Status: Acute (28) UTI (urinary tract infection) Status: Acute Allergies: Coded Allergies: aripiprazole (Verified Allergy, Intermediate, 12/12/16) TONGUE SWELLS acetaminophen (Verified Allergy, Unknown, 12/12/16) haloperidol (Verified Allergy, Unknown, 12/12/16) fluphenazine (Verified Adverse Reaction, Intermediate, 12/12/16) TONGUE SWELLS Substance Abuse Substance use: No known substance abuse Substance abuse history: No Prior substance abuse treatmen: No Social History Marital status: other (She is living with the father of the child. ) Level of education: hs DPA/Conservatorship: No Occupation/Skilled Nursing: unemployed Psychiatric Objective Eval Review of Systems: Review of Systems: Applicable Constitutional: Normal Eyes: Normal ENT: Normal Neck: Normal Respiratory: Normal Chest/Breast: Normal Cardiovascular: Normal GI: Normal Genitourinary: Normal Skin: Normal Lymphatic: Normal Musculoskeletal: Normal Neurological: Normal Physical Examination: Sleep: Adequate Appetite: Adequate Energy: Adequate Interest: Decreased Mental Status Examination: Appearance: Groomed Eye Contact: Good Psychomotor Activity: Normal Behavior: Cooperative Speech: Clear AFFECT: Depressed, Constricted Mood: Appropriate/Full, Depressed Though Process: Linear Thought Content: Normal Suicidal: No Homicidal: No On 72 hour hold: Yes Orientation: x4 Insight: Intact Judgement: Intact Attention Span: Intact Laboratory Results Laboratory Tests Test 12/12/16 01:42 12/12/16 22:00 Urine Amphetamines Screen Negative Urine Barbiturates Negative Urine Benzodiazepines Screen Negative Urine Bilirubin NEGATIVE Urine Cannabinoids Negative Urine Clarity CLEAR Urine Cocaine Screen Negative Urine Color LT. YELLOW Urine Glucose NEGATIVE% Urine Hemoglobin NEGATIVE Urine Ketones NEGATIVE Urine Leukocyte Esterase NEGATIVE Urine Nitrite NEGATIVE Urine Opiates Screen Negative Urine Specific [place] 1.020 Urine Total Protein NEGATIVE Urine Urobilinogen 0.2 E.U./dL Urine pH 6.5 Acetaminophen Level < 10.0ug/ml Alanine Aminotransferase (ALT/SGPT) 30IU/L Albumin 4.2g/dl Albumin/Globulin Ratio 1.35 Alkaline Phosphatase 91IU/L Anion Gap 15 Aspartate Amino Transf (AST/SGOT) 19IU/L Basophils # 0.010^3/ul Basophils % 0.0% Blood Morphology Comment Blood Urea Nitrogen 9mg/dl Calcium Level 9.2mg/dl Carbon Dioxide Level 28mmol/L Chloride Level 106mmol/L Creatinine 0.78mg/dl Direct Bilirubin 0.00mg/dl Eosinophils # 0.010^3/ul Eosinophils % 0.0% Ethyl Alcohol Level < 10.0mg/dl Globulin 3.10g/dl Glucose Level 81mg/dl Hematocrit 38.1% Hemoglobin 12.6g/dl Indirect Bilirubin 0.0mg/dl Lymphocytes # 1.510^3/ul Lymphocytes % 13.0% Mean Corpuscular Hemoglobin 25.3pg Mean Corpuscular Hemoglobin Concent 33.0g/dl Mean Corpuscular Volume 76.8fl Mean Platelet Volume 11.3fl Monocytes # 0.710^3/ul Monocytes % 6.0% Neutrophils # 9.310^3/ul Neutrophils % 81.0% Nucleated Red Blood Cells # 0.410^3/ul Nucleated Red Blood Cells % 3.2/100WBC Platelet Count 97215^3/UL Potassium Level 3.7mmol/L Red Blood Count 4.9610^6/ul Red Cell Distribution Width 13.4% Salicylates Level < 1.0mg/dl Sodium Level 145mmol/L Total Bilirubin 0.0mg/dl Total Protein 7.3g/dl White Blood Count 11.510^3/ul Assessment and Plan Assessment/Diagnosis [place] I: F31.63 bipolar disorder, mixed, moderate without psychotic features. [place] II: No diagnosis [place] III: Sickle Cell Trait. Anemia [place] IV: problems with access to mental health care. Problem with finances [place] V: 45 Recommendation/Plan Medication Management Trileptal 100mg po bid for 7 days, then 200mg po bid thereafter. #120 Wellbutrin XR 300mg po daily #30 Continue zoloft and lithium and see psychiatrist in 2 weeks. Psychotherapy She would benefit from CBT and DBT. www.dbtselfhelp.comi Pt. Caregiver/Family Education The patient needs to be encouraged that she has a treatable condition and with different medications she should be much better. Reader is not effective for dysphoric states, anticonvulsants are far superior. Zoloft without effective mood stabilization can induce a dysphoric jihan, in which would increase symptoms of depression. Wellbutrin is not as associated with this paradoxical effect. She could be discharged to her boyfriend. The hold can be discontinued. Helpful websites: www.[facility].org Dysphoric Jihan http://en.wikipedia.org/wiki/Mixed_state_%28psychiatry%29 http://www.[employer]//nfvpthyzb-cxyzg-mdxzt-kraft-mixed- dkhkb-lddnpxz-mqchjapc_s_6335625.html http://www.psychiatrictimes.com/articles/qever-rfinmx-wtiet-yjymsyjo-nmjif-spos- 1 http://www.bipolardisorderscenters.com/hxvg-le-keckueepb-jihan/ Mood stabilizers and mixed affective states: http://www.ncbi.nlm.nih.gov/pubmed/28726090 http://[facility]./siteconst/userfiles/file/englit/[Juan J_Della,_Rolan_ Yolanda]_Bipolar_Disorders%20Mixed%20State,%20Rapid%20Cycling%20and%20Atypical% 20Forms%20(BookFi.org).pdf http://onlinelibrary.wesley.com/doi/10.1002/pnp.333/pdf GARRICK CORONA MD Dec 13, 2016 13:25
[2016-12-13] MEDS ORDERED: BUPR300T48 PO (14:24)
[2016-12-13] MEDS ORDERED: OXCA300T3 PO (14:56)
[2016-12-13] MEDS ORDERED: OXCA150T3 PO (14:56)
== END 2016-12-13 15:06 | disposition home or self-care (01) ==
LOC: E/R 21:07
DX: F32.1 Major depressive disorder, single episode, moderate (principal); R45.851 Suicidal ideations; J45.909 Unspecified asthma, uncomplicated; F17.210 Nicotine dependence, cigarettes, uncomplicated; R40.2142 Coma scale, eyes open, spontaneous, at arrival to emergency department; R40.2252 Coma scale, best verbal response, oriented, at arrival to emergency department; R40.2362 Coma scale, best motor response, obeys commands, at arrival to emergency department
CPT/HCPCS: 36415; 80053; 80306; 80307; 81003; 85025; Z7502; Z7610; 99284

== ENCOUNTER 2016-12-13 22:46 | Emergency (ER) | payer MEDICAID ==
[~2016-12-13] VITALS: Ht 157.5 cm; Wt 56.1 kg
[~2016-12-13 22:46] MED LIST changes: +BUPR300T48 PO; -CIPR500T4 PO; -DOXY100T20 PO; +LIT300 PO; -OLAN2.5T4 PO; -OLAN5TAB5 PO; +OXCA150T3 PO; +OXCA300T3 PO; -PHEN-537 PO; +SERT100T PO
[2016-12-13 22:57] VITALS: Ht 157.5 cm; Wt 56.1 kg
[2016-12-13 23:26] VITALS: TEMP 98.3
[2016-12-14 00:15] LABS: BASOPHILS % 0.3 % (0.0-2.0); EOSINOPHILS % 0.4 % (0.0-7.0); HEMATOCRIT 37.9 % (37.0-47.0); HEMOGLOBIN 12.4 g/dl (12.0-16.0); LYMPHOCYTES # 1.3 10^3/ul (0.8-2.9); LYMPHOCYTES % 10.8 % (15.0-51.0); MEAN CORPUSCULAR HEMOGLOBIN 25.4 pg (29.0-33.0); MEAN CORPUSCULAR HGB CONC 32.9 g/dl (32.0-37.0); MEAN CORPUSCULAR VOLUME 77.2 fl (82.0-101.0); MEAN PLATELET VOLUME 10.7 fl (7.4-10.4); MONOCYTE # 0.6 10^3/ul (0.3-0.9); MONOCYTES % 4.9 % (0.0-11.0); NEUTROPHIL # 9.8 10^3/ul (1.6-7.5); NEUTROPHILS % 83.6 % (39.0-77.0); PLATELET COUNT 210 10^3/UL (140-440); RED BLOOD COUNT 4.91 10^6/ul (4.20-5.40); RED CELL DISTRIBUTION WIDTH 13.9 % (11.5-14.5); UNCORRECTED WBC 11.7 10^3/ul (4.8-10.8); WHITE BLOOD COUNT 11.7 10^3/ul (4.8-10.8)
[2016-12-14 00:18] LABS: CONDITION 1; LH ANALYZER COMMENTS 1; SUSPECT 1
[2016-12-14 00:59] LABS: ALBUMIN 4.1 g/dl (3.3-4.9)
[2016-12-14 01:00] LABS: CHLORIDE 104 mmol/L (97-110); POTASSIUM 3.6 mmol/L (3.5-5.1); SODIUM 143 mmol/L (135-144)
[2016-12-14 01:02] LABS: ALBUMIN/GLOBULIN RATIO 1.51; ANION GAP 15 (8-16); ASPARTATE AMINO TRANSFERASE 17 IU/L (15-46); BILIRUBIN,INDIRECT 0.1 mg/dl (0-1.1); BILIRUBIN,TOTAL 0.1 mg/dl (0.2-1.3); CARBON DIOXIDE 28 mmol/L (21-31); CREATININE 0.68 mg/dl (0.44-1.00); TOTAL PROTEIN 6.8 g/dl (6.1-8.1)
[2016-12-14 01:03] LABS: ALANINE AMINOTRANSFERASE 23 IU/L (13-69); ALKALINE PHOSPHATASE 91 IU/L (42-121); BLOOD UREA NITROGEN 6 mg/dl (7-20); CALCIUM 9.1 mg/dl (8.4-10.2); GLUCOSE 85 mg/dl (70-220)
[2016-12-14 01:16] LABS: ACETAMINOPHEN < 10.0 ug/ml (10.0-30.0); ETHANOL < 10.0 mg/dl; SALICYLATE < 1.0 mg/dl (5.0-30.0)
[2016-12-14 01:20] LABS: ADD UMIC YES; URINE BILIRUBIN (Dip) NEGATIVE (NEGATIVE); URINE BLOOD (Dip) NEGATIVE (NEGATIVE); URINE COLOR LT. YELLOW (YELLOW); URINE GLUCOSE (Dip) NEGATIVE (NEGATIVE); URINE KETONES (Dip) NEGATIVE (NEGATIVE); URINE LEUKOCYTE ESTERASE (Dip) TRACE (NEGATIVE); URINE NITRITE (Dip) NEGATIVE (NEGATIVE); URINE TOTAL PROTEIN (Dip) NEGATIVE (NEGATIVE); URINE UROBILINOGEN (Dip) 0.2 E.U./dL (0.1-1.0)
--- NOTE | 2016-12-14 01:45 | PSY ---
Date/Time of Note Date/Time of Note DATE: 12/14/16 TIME: 01:13 Psychiatric Subjective Eval Consent Pt consented to telemedicine: Yes Subjective Evaluation Patient location: emergency Chief Complaint: pt reports her daughter was taken today and she now has SI Reason for consult: suicide History of present illness patient is a 26 yo female with PPH Of bipolar do who came to the ER due to feeling suicidal due to having her 7 month child removed from her by CPS, she states that she is feeling hopeless and helpless and now that they took her child she has nothing to live for, she wants to cut herself or overdose on medication, she is feeling anxious and irritable, unable to sleep, she denies any psychotic symptoms, no HI. she came to the ER yesterday and was put on a hold for DTS but was then discharged since he denied feeling suicidal anymore. Past psychiatric history several past admissions Hospitalization: yes Family History denies Medical history Problems Medical Problems: (1) Abdominal pain Status: Acute (2) Asymptomatic bacteriuria during Status: Acute (3) Bipolar disorder Status: Acute (4) Cervicitis Status: Acute (5) Cystitis Status: Acute (6) Depression Status: Acute (7) Depression Status: Acute (8) Depression Status: Acute (9) Depression Status: Acute (10) Depression Status: Acute (11) Depression Status: Acute (12) Depression Status: Acute (13) Depression Status: Acute (14) Depression Status: Acute (15) Depression Status: Acute (16) First trimester Status: Acute (17) Mood disorder Status: Acute (18) Suicidal ideation Status: Acute (19) Suicidal ideation Status: Acute (20) Suicidal ideation Status: Acute (21) Suicidal ideation Status: Acute (22) Suicidal ideation Status: Acute (23) Suicidal ideation Status: Acute (24) Suicidal ideation Status: Acute (25) Suicidal ideation Status: Acute (26) Suicidal ideation Status: Acute (27) Suicidal ideation Status: Acute (28) UTI (urinary tract infection) Status: Acute Allergies: Coded Allergies: aripiprazole (Verified Allergy, Intermediate, 12/12/16) TONGUE SWELLS acetaminophen (Verified Allergy, Unknown, 12/12/16) haloperidol (Verified Allergy, Unknown, 12/12/16) fluphenazine (Verified Adverse Reaction, Intermediate, 12/12/16) TONGUE SWELLS Substance Abuse Substance use: No known substance abuse Social History Marital status: single Level of education: [employer]/Conservatorship: No Occupation/[employer]: unemployed Psychiatric Objective Eval Review of Systems: Review of Systems: Not Applicable Physical Examination: Physical Examination: Applicable Sleep: Insomnia Appetite: Decreased Energy: Decreased Interest: Decreased Mental Status Examination: Appearance: Disheveled Eye Contact: Fair Psychomotor Activity: Normal Behavior: Cooperative Speech: Clear AFFECT: Depressed Mood: Depressed Though Process: Linear Thought Content: Normal Suicidal: Yes Homicidal: No On 72 hour hold: No Orientation: x2 Cognition: Alert Insight: Impared Judgement: Impared Attention Span: Intact Laboratory Results Laboratory Tests Test 12/13/16 23:55 Basophils # 0.010^3/ul Basophils % 0.3% Blood Morphology Comment Eosinophils # 0.010^3/ul Eosinophils % 0.4% Hematocrit 37.9% Hemoglobin 12.4g/dl Lymphocytes # 1.310^3/ul Lymphocytes % 10.8% Mean Corpuscular Hemoglobin 25.4pg Mean Corpuscular Hemoglobin Concent 32.9g/dl Mean Corpuscular Volume 77.2fl Mean Platelet Volume 10.7fl Monocytes # 0.610^3/ul Monocytes % 4.9% Neutrophils # 9.810^3/ul Neutrophils % 83.6% Nucleated Red Blood Cells # 0.010^3/ul Nucleated Red Blood Cells % 0.0/100WBC Platelet Count 60582^3/UL Red Blood Count 4.9110^6/ul Red Cell Distribution Width 13.9% White Blood Count 11.710^3/ul Assessment and Plan Assessment/Diagnosis [place] I: mood do nos [place] II: deferred [place] III: as per record [place] IV: poor social support [place] V: gaf 25 Recommendation/Plan Follow-up/Disposition Please admit patient on unvoluntary status due to Danger to self, In my opinion, patient currently MEETS criterion for inpatient care and CANNOT be safely treated at a lower level of care today as evidenced by the following risk factors: Current and Recent Suicidal Ideation Intense feelings of hopelessness and lack of future orientation. Significant recent DETERIORATION in function, behavior and thought processes Non-Compliance with Outpatient Treatment Patient has failed outpatient and requires further inpatient assessment 5150 Recommendation: Place Hold JAZMIN VILLALBA MD Dec 14, 2016 01:23
[2016-12-14 01:46] LABS: BARBITURATES Negative (NEGATIVE); BENZODIAZEPINES Negative (NEGATIVE)
[2016-12-14 01:47] LABS: CANNABINOIDS Negative (NEGATIVE); COCAINE Negative (NEGATIVE); OPIATES Negative (NEGATIVE)
[2016-12-14 01:59] LABS: BACTERIA,URINE OCCASIONAL; SQUAMOUS EPITHELIAL CELL,UR MODERATE; URINE RBCS 0-2 /HPF (0)
--- NOTE | 2016-12-14 03:29 | ERA ---
ER Documentation Chief Complaint Date/Time DATE: 12/14/16 TIME: 03:28 Chief Complaint pt reports her daughter was taken today and she now has SI HPI This is a 26 year female comes in since she is a synovitis in the child was taken away by child protective services today. She was here 24 hours ago for similar complaints and discharge of her second evaluation. Of upon arrival patient is acutely suicidal. ROS All systems reviewed and are negative except as per history of present illness. Medications Home Meds Active Scripts Oxcarbazepine* (Trileptal*) 300 Mg Tablet, 300 MG PO BID for 30 Days, TAB Prov:RODDY CHARLES MD 12/13/16 Oxcarbazepine* (Trileptal*) 150 Mg Tablet, 150 MG PO BID for 7 Days, TAB Prov:RODDY CHARLES MD 12/13/16 Bupropion Hcl* (Wellbutrin XL*) 300 Mg Tab.sr.24h, 300 MG PO DAILY, #30 TAB.SA Prov:RODDY CHARLES MD 12/13/16 Reported Medications [place] Carbonate* ([place]*) 300 Mg Cap, 300 MG PO BID, CAP 12/12/16 Sertraline Hcl* (Zoloft*) 100 Mg Tablet, 100 MG PO QAM, #30 TAB 12/12/16 Discontinued Scripts Olanzapine* (Zyprexa*) 2.5 Mg Tablet, 2.5 MG PO bed time, #14 TAB Prov:ISAIAS ESCOBEDO MD 11/26/16 Doxycycline Hyclate* (Doxycycline Hyclate*) 100 Mg Tablet.dr, 100 MG PO BID for 7 Days, TAB Prov:JOLENE RAYMOND PA-C 11/09/16 Ciprofloxacin Hcl* (Ciprofloxacin Hcl*) 500 Mg Tablet, 500 MG PO BID for 7 Days , TAB Prov:JOLENE RAYMOND PA-C 11/09/16 Phenazopyridine Hcl* (Pyridium*) 100 Mg Tab, 100 MG PO TID Y for URINARY PAIN, # 8 TAB Prov:JOLENE RAYMOND PA-C 11/09/16 Olanzapine* (Zyprexa*) 5 Mg Tablet, 5 MG PO BID WITH MEALS for 14 Days, TAB Prov:ISAIAS ESCOBEDO MD 10/29/16 Olanzapine* (Zyprexa*) 5 Mg Tablet, 5 MG PO BID, #14 TAB Prov:ISAIAS ESCOBEDO MD 10/29/16 Allergies Allergies: Coded Allergies: aripiprazole (Verified Allergy, Intermediate, 12/12/16) TONGUE SWELLS acetaminophen (Verified Allergy, Unknown, 12/12/16) haloperidol (Verified Allergy, Unknown, 12/12/16) fluphenazine (Verified Adverse Reaction, Intermediate, 12/12/16) TONGUE SWELLS PMhx/Soc History of Surgery: Yes (C SECTION x1) Anesthesia Reaction: No Hx Neurological Disorder: No Hx Respiratory Disorders: Yes (asthma) Hx Cardiac Disorders: No Hx Psychiatric Problems: Yes (bipolar depression, depression, suicidal attempt.) Hx Miscellaneous Medical Probl: No Hx Alcohol Use: No Hx Substance Use: No Hx Tobacco Use: Yes Smoking Status: Current every day smoker Physical Exam Vitals Vital Signs Date Time Temp Pulse Resp B/P Pulse Ox O2 Delivery O2 Flow Rate FiO2 12/13/16 23:26 98.3 18 134/68 98 12/13/16 22:57 98.3 69 18 134/68 98 Physical Exam Const: [] Head: Atraumatic Eyes: Normal Conjunctiva ENT: Normal External Ears, Nose and Mouth. Neck: Full range of motion..~ No meningismus. Resp: Clear to auscultation bilaterally Cardio: Regular rate and rhythm, no murmurs Abd: Soft, non tender, non distended. Normal bowel sounds Skin: No petechiae or rashes Back: No midline or flank tenderness Ext: No cyanosis, or edema Neur: Awake and alert Psych: Normal Mood and Affect Result Diagram: 12/13/169 12/13/16 2355 Results 24 hrs Laboratory Tests Test 12/13/16 23:55 12/14/16 00:49 Acetaminophen Level < 10.0ug/ml Alanine Aminotransferase (ALT/SGPT) 23IU/L Albumin 4.1g/dl Albumin/Globulin Ratio 1.51 Alkaline Phosphatase 91IU/L Anion Gap 15 Aspartate Amino Transf (AST/SGOT) 17IU/L Basophils # 0.010^3/ul Basophils % 0.3% Blood Morphology Comment Blood Urea Nitrogen 6mg/dl Calcium Level 9.1mg/dl Carbon Dioxide Level 28mmol/L Chloride Level 104mmol/L Creatinine 0.68mg/dl Direct Bilirubin 0.00mg/dl Eosinophils # 0.010^3/ul Eosinophils % 0.4% Ethyl Alcohol Level < 10.0mg/dl Globulin 2.70g/dl Glucose Level 85mg/dl Hematocrit 37.9% Hemoglobin 12.4g/dl Indirect Bilirubin 0.1mg/dl Lymphocytes # 1.310^3/ul Lymphocytes % 10.8% Mean Corpuscular Hemoglobin 25.4pg Mean Corpuscular Hemoglobin Concent 32.9g/dl Mean Corpuscular Volume 77.2fl Mean Platelet Volume 10.7fl Monocytes # 0.610^3/ul Monocytes % 4.9% Neutrophils # 9.810^3/ul Neutrophils % 83.6% Nucleated Red Blood Cells # 0.010^3/ul Nucleated Red Blood Cells % 0.0/100WBC Platelet Count 04792^3/UL Potassium Level 3.6mmol/L Red Blood Count 4.9110^6/ul Red Cell Distribution Width 13.9% Salicylates Level < 1.0mg/dl Serum HCG, Qualitative NEGATIVE Sodium Level 143mmol/L Total Bilirubin 0.1mg/dl Total Protein 6.8g/dl White Blood Count 11.710^3/ul Urine Amphetamines Screen Negative Urine Bacteria OCCASIONAL Urine Barbiturates Negative Urine Benzodiazepines Screen Negative Urine Bilirubin NEGATIVE Urine Cannabinoids Negative Urine Clarity CLEAR Urine Cocaine Screen Negative Urine Color LT. YELLOW Urine Glucose NEGATIVE% Urine Hemoglobin NEGATIVE Urine Ketones NEGATIVE Urine Leukocyte Esterase TRACE Urine Microscopic RBC 0-2/HPF Urine Microscopic WBC 2-5/HPF Urine Nitrite NEGATIVE Urine Opiates Screen Negative Urine Specific [place] <=1.005 Urine Squamous Epithelial Cells MODERATE Urine Total Protein NEGATIVE Urine Urobilinogen 0.2 E.U./dL Urine pH 5.5 Procedures/MDM Patient's behavioral symptoms have stabilized while in the department. Patient is medically cleared and appropriate for psychiatric evaluation and work up. No e/o neurologic, toxic, infectious, or metabolic cause. Placed on a 5150 hold. Pending [facility] placement Departure Diagnosis: Primary Impression: Suicidal ideation Condition: Serious ABNER OWEN Dec 14, 2016 03:28
[2016-12-14 06:29] VITALS: BP 94/51; PULSE 64; RESP 16
== END 2016-12-14 09:34 ==
LOC: E/R 22:46
DX: F29 Unspecified psychosis not due to a substance or known physiological condition (principal); R45.851 Suicidal ideations; J45.909 Unspecified asthma, uncomplicated; F17.210 Nicotine dependence, cigarettes, uncomplicated; R40.2142 Coma scale, eyes open, spontaneous, at arrival to emergency department; R40.2252 Coma scale, best verbal response, oriented, at arrival to emergency department; R40.2362 Coma scale, best motor response, obeys commands, at arrival to emergency department
CPT/HCPCS: 36415; 80053; 80306; 80307; 81001; 84703; 85025; Z7502; 81003

== ENCOUNTER 2017-01-19 06:17 | Emergency (ER) | payer MEDICAID ==
[~2017-01-19] VITALS: Ht 157.5 cm; Wt 55.5 kg
[2017-01-19 06:23] VITALS: Ht 157.5 cm; Wt 55.5 kg
--- NOTE | 2017-01-19 07:05 | ERA ---
ER Documentation Chief Complaint Date/Time DATE: 01/19/17 TIME: 07:02 Chief Complaint i feel depressed, havenot use my meds since i took some pills, denies si HPI This is a 26-year-old -[place] female with a known history of depression. The patient had been taking 200 mg of Zoloft on a daily basis until 1 month ago. She indicated at that time, 1 month prior to arrival, she had an intentional overdose on Zoloft and she attempted to kill herself. She been taken to [facility] and was given charcoal. She indicates since that time she has not been on any antidepressants, denies illicit drug use or alcohol use. She presents to the emergency department today stating that she has been feeling very depressed and has had recurrent thoughts of wanting to kill herself again. She states she does have a plan of overdosing on medication. She has a 9-month-old daughter at home and indicated she required a blood transfusion prior to as she had developed anemia and has sickle cell trait. She denies any chest pain or pressure. She has no shortness of breath at rest or exertion. She denies any auditory tactile or visual hallucinations. ROS All systems reviewed and are negative except as per history of present illness. Medications Home Meds Active Scripts Oxcarbazepine* (Trileptal*) 300 Mg Tablet, 300 MG PO BID for 30 Days, TAB Prov:RODDY CHARLES MD 12/13/16 Oxcarbazepine* (Trileptal*) 150 Mg Tablet, 150 MG PO BID for 7 Days, TAB Prov:RODDY CHARLES MD 12/13/16 Bupropion Hcl* (Wellbutrin XL*) 300 Mg Tab.sr.24h, 300 MG PO DAILY, #30 TAB.SA Prov:RODDY CHARLES MD 12/13/16 Reported Medications [place] Carbonate* ([place]*) 300 Mg Cap, 300 MG PO BID, CAP 12/12/16 Sertraline Hcl* (Zoloft*) 100 Mg Tablet, 100 MG PO QAM, #30 TAB 12/12/16 Allergies Allergies: Coded Allergies: aripiprazole (Verified Allergy, Intermediate, 12/12/16) TONGUE SWELLS acetaminophen (Verified Allergy, Unknown, 12/12/16) haloperidol (Verified Allergy, Unknown, 12/12/16) fluphenazine (Verified Adverse Reaction, Intermediate, 12/12/16) TONGUE SWELLS PMhx/Soc History of Surgery: Yes (C SECTION x1) Anesthesia Reaction: No Hx Neurological Disorder: No Hx Respiratory Disorders: Yes (asthma) Hx Cardiac Disorders: No Hx Psychiatric Problems: Yes (bipolar depression, depression, suicidal attempt.) Hx Miscellaneous Medical Probl: No Hx Alcohol Use: No Hx Substance Use: No Hx Tobacco Use: Yes Smoking Status: Current some day smoker Physical Exam Vitals Vital Signs Date Time Temp Pulse Resp B/P Pulse Ox O2 Delivery O2 Flow Rate FiO2 01/19/17 06:23 97.4 66 18 120/57 98 Physical Exam Constitutional:Well-developed. Well-nourished. HEENT:Normocephalic. Atraumatic.Pupils were equal round reactive to light. Moist mucous membranes.No tonsillar exudates. Nasoseptal hematoma. No hemotympanum Neck: No nuchal rigidity. No lymphadenopathy. No posterior cervical spine tenderness or step-offs. Respiratory: Not using accessory muscles of respiration.Lungs were clear to auscultation bilaterally. No rhonchi. No rales. No wheezing. Cardiovascular: Regular rate regular rhythm.No murmurs. No rubs were appreciated.S1, S2 normal. Distal pulses are palpable 2+ bilaterally. GI: Abdomen was soft. Nontender. Non Distended. No pulsatile abdominal masses or bruits. No rebound. No guarding. Bowel sounds were present and normal. Muscle skeletal: Full range of motion of both the upper and lower extremities bilaterally.Normal muscle tone.No assymetrical calf tenderness or swelling. Skin: No petechia, no purpura. No lesions on the palms or the soles of the feet. No maculopapular rash. NEURO: Patient was alert, awake, orientated x3.No facial droop. Gait observed and normal with no ataxia.Speech had regular rate and rhythm. No focal neurological deficits. Patient was experiencing suicidal thoughts and ideations but no homicidal thoughts or ideations and no auditory tactile or visual hallucinations. Patient spoke in a soft tone but made good eye contact Procedures/MDM The patient presented to the emergency department with an active suicidal ideation. My differential diagnosis included but was not limited to major depressive disorder, normal despondency, bipolar disorder, schizophrenia, anxiety disorder, borderline personality disorder, antisocial personality disorder, organic mental disorder, bereavement or alcohol or drug abuse. Ancillary lab work was obtained including blood alcohol level, drug screen and serum toxicology panel. The patient was provided a safe environment while in the emergency department with appropriate supervision. The patient will be seen and evaluated by the tele-psychiatrist as the patient was medically cleared by myself at this time. Departure Diagnosis: Primary Impression: Depression Qualified Code: F32.9 - Depression, unspecified depression type Additional Impression: Suicidal ideations Condition: Serious TAYLER CRUZ Jan 19, 2017 07:05
[2017-01-19 07:17] LABS: ADD SCAN DIFF NO
[2017-01-19 07:34] LABS: BASOPHILS % 0.3 % (0.0-2.0); EOSINOPHILS # 0.1 10^3/ul (0.0-0.5); EOSINOPHILS % 1.4 % (0.0-7.0); HEMATOCRIT 40.8 % (37.0-47.0); HEMOGLOBIN 12.7 g/dl (12.0-16.0); LYMPHOCYTES # 2.8 10^3/ul (0.8-2.9); LYMPHOCYTES % 44.2 % (15.0-51.0); MEAN CORPUSCULAR HEMOGLOBIN 24.3 pg (29.0-33.0); MEAN CORPUSCULAR HGB CONC 31.1 g/dl (32.0-37.0); MEAN PLATELET VOLUME 13.3 fl (7.4-10.4); MONOCYTE # 0.3 10^3/ul (0.3-0.9); MONOCYTES % 4.7 % (0.0-11.0); NEUTROPHIL # 3.2 10^3/ul (1.6-7.5); NEUTROPHILS % 49.2 % (39.0-77.0); PLATELET COUNT 226 10^3/UL (140-415); RED BLOOD COUNT 5.23 10^6/ul (4.20-5.40); RED CELL DISTRIBUTION WIDTH 14.3 % (11.5-14.5); WHITE BLOOD COUNT 6.4 10^3/ul (4.8-10.8)
[2017-01-19 08:40] LABS: ALBUMIN 4.5 g/dl (3.3-4.9)
[2017-01-19 08:41] LABS: CHLORIDE 104 mmol/L (97-110); POTASSIUM 3.5 mmol/L (3.5-5.1); SODIUM 142 mmol/L (135-144)
[2017-01-19 08:43] LABS: ALBUMIN/GLOBULIN RATIO 1.45; ALKALINE PHOSPHATASE 85 IU/L (42-121); ANION GAP 13 (8-16); ASPARTATE AMINO TRANSFERASE 26 IU/L (15-46); BILIRUBIN,INDIRECT 0.4 mg/dl (0-1.1); BILIRUBIN,TOTAL 0.4 mg/dl (0.2-1.3); CARBON DIOXIDE 29 mmol/L (21-31); CREATININE 0.75 mg/dl (0.44-1.00); TOTAL PROTEIN 7.6 g/dl (6.1-8.1)
[2017-01-19 08:44] LABS: ALANINE AMINOTRANSFERASE 29 IU/L (13-69); BLOOD UREA NITROGEN 8 mg/dl (7-20); CALCIUM 9.3 mg/dl (8.4-10.2); GLUCOSE 90 mg/dl (70-220)
[2017-01-19 09:04] LABS: ETHANOL < 10.0 mg/dl
[2017-01-19 10:12] LABS: ADD UMIC NO; URINE BILIRUBIN (Dip) NEGATIVE (NEGATIVE); URINE BLOOD (Dip) NEGATIVE (NEGATIVE); URINE COLOR LT. YELLOW (YELLOW); URINE GLUCOSE (Dip) NEGATIVE (NEGATIVE); URINE KETONES (Dip) NEGATIVE (NEGATIVE); URINE LEUKOCYTE ESTERASE (Dip) NEGATIVE (NEGATIVE); URINE NITRITE (Dip) NEGATIVE (NEGATIVE); URINE TOTAL PROTEIN (Dip) NEGATIVE (NEGATIVE); URINE UROBILINOGEN (Dip) 0.2 E.U./dL (0.1-1.0)
[2017-01-19 10:43] LABS: BARBITURATES NEGATIVE (NEGATIVE); BENZODIAZEPINES NEGATIVE (NEGATIVE); CANNABINOIDS NEGATIVE (NEGATIVE); COCAINE NEGATIVE (NEGATIVE); OPIATES NEGATIVE (NEGATIVE)
[2017-01-19 11:24] LABS: ACETAMINOPHEN < 10.0 ug/ml (10.0-30.0); SALICYLATE < 1.0 mg/dl (5.0-30.0)
--- NOTE | 2017-01-19 17:26 | PSY ---
Date/Time of Note Date/Time of Note DATE: 01/19/17 TIME: 17:22 Psychiatric Subjective Eval Consent Pt consented to telemedicine: Yes Subjective Evaluation Patient location: emergency Chief Complaint: i feel depressed, havenot use my meds since i took some pills , denies si History of present illness 26 YO FEMALE familiar to this scenario writer from prior ED visits, BIB her BF due to depression and SI. Pt has been off meds since her last admission, has a hx SA by OD and cutting. Depressed, hopeless, irritable, helpless, + Si with a plan to OD. denies ah /vh. Past psychiatric history multiple inpt, multiple SA Hospitalization: Suicidal Attempt(s) Medical history Problems Medical Problems: (1) Abdominal pain Status: Acute (2) Asymptomatic bacteriuria during Status: Acute (3) Bipolar disorder Status: Acute (4) Cervicitis Status: Acute (5) Cystitis Status: Acute (6) Depression Status: Acute (7) Depression Status: Acute (8) Depression Status: Acute (9) Depression Status: Acute (10) Depression Status: Acute (11) Depression Status: Acute (12) Depression Status: Acute (13) Depression Status: Acute (14) Depression Status: Acute (15) Depression Status: Acute (16) Depression Status: Acute (17) First trimester Status: Acute (18) Mood disorder Status: Acute (19) Suicidal ideation Status: Acute (20) Suicidal ideation Status: Acute (21) Suicidal ideation Status: Acute (22) Suicidal ideation Status: Acute (23) Suicidal ideation Status: Acute (24) Suicidal ideation Status: Acute (25) Suicidal ideation Status: Acute (26) Suicidal ideation Status: Acute (27) Suicidal ideation Status: Acute (28) Suicidal ideation Status: Acute (29) Suicidal ideation Status: Acute (30) Suicidal ideations Status: Acute (31) UTI (urinary tract infection) Status: Acute Allergies: Coded Allergies: aripiprazole (Verified Allergy, Intermediate, 01/19/17) TONGUE SWELLS acetaminophen (Verified Allergy, Unknown, 01/19/17) haloperidol (Verified Allergy, Unknown, 01/19/17) fluphenazine (Verified Adverse Reaction, Intermediate, 01/19/17) TONGUE SWELLS Substance Abuse Substance abuse history: Yes Prior substance abuse treatmen: No Social History Marital status: single Level of education: 11th [employer]/Conservatorship: No Occupation/Residential: unemployed Psychiatric Objective Eval Physical Examination: Sleep: Insomnia Energy: Decreased Interest: Decreased Mental Status Examination: Appearance: Groomed Eye Contact: Good Psychomotor Activity: Normal Behavior: Cooperative Speech: Clear AFFECT: Depressed Mood: Depressed Though Process: Linear Thought Content: Normal Suicidal: Yes Homicidal: No On 72 hour hold: No Orientation: x4 Cognition: Alert Insight: Impared Judgement: Impared Laboratory Results Laboratory Tests Test 01/19/17 07:00 01/19/17 09:40 White Blood Count 6.410^3/ul Red Blood Count 5.2310^6/ul Hemoglobin 12.7g/dl Hematocrit 40.8% Mean Corpuscular Volume 78.0fl Mean Corpuscular Hemoglobin 24.3pg Mean Corpuscular Hemoglobin Concent 31.1g/dl Red Cell Distribution Width 14.3% Platelet Count 91485^3/UL Mean Platelet Volume 13.3fl Neutrophils % 49.2% Lymphocytes % 44.2% Monocytes % 4.7% Eosinophils % 1.4% Basophils % 0.3% Nucleated Red Blood Cells % 0.0/100WBC Neutrophils # 3.210^3/ul Lymphocytes # 2.810^3/ul Monocytes # 0.310^3/ul Eosinophils # 0.110^3/ul Basophils # 0.010^3/ul Nucleated Red Blood Cells # 0.010^3/ul Sodium Level 142mmol/L Potassium Level 3.5mmol/L Chloride Level 104mmol/L Carbon Dioxide Level 29mmol/L Anion Gap 13 Blood Urea Nitrogen 8mg/dl Creatinine 0.75mg/dl Glucose Level 90mg/dl Calcium Level 9.3mg/dl Total Bilirubin 0.4mg/dl Direct Bilirubin 0.00mg/dl Indirect Bilirubin 0.4mg/dl Aspartate Amino Transf (AST/SGOT) 26IU/L Alanine Aminotransferase (ALT/SGPT) 29IU/L Alkaline Phosphatase 85IU/L Total Protein 7.6g/dl Albumin 4.5g/dl Globulin 3.10g/dl Albumin/Globulin Ratio 1.45 Salicylates Level < 1.0mg/dl Acetaminophen Level < 10.0ug/ml Ethyl Alcohol Level < 10.0mg/dl Urine Color LT. YELLOW Urine Clarity CLEAR Urine pH 6.0 Urine Specific [place] 1.020 Urine Ketones NEGATIVE Urine Nitrite NEGATIVE Urine Bilirubin NEGATIVE Urine Urobilinogen 0.2 E.U./dL Urine Leukocyte Esterase NEGATIVE Urine Hemoglobin NEGATIVE Urine Glucose NEGATIVE% Urine Total Protein NEGATIVE Urine Opiates Screen NEGATIVE Urine Barbiturates NEGATIVE Urine Amphetamines Screen NEGATIVE Urine Benzodiazepines Screen NEGATIVE Urine Cocaine Screen NEGATIVE Urine Cannabinoids NEGATIVE Assessment and Plan Assessment/Diagnosis [place] I: BIPOLAR DISORDER i, DEPRESSED [place] II: BORDERLINE PD [place] III: NAD [place] IV: MODERATE [place] V: GAF 25 Recommendation/Plan Medication Management CONTINUE CURRENT MEDS Psychotherapy DEFER TO INPT Follow-up/Disposition TRANSFER TO INPT PSYCH, PT AGREES TO VOLUNTARY ADMISSION. 5150 Recommendation: PRAFUL MATHIAS MD Jan 19, 2017 17:26
[2017-01-19 23:00] VITALS: BP 103/63; PULSE 65; RESP 17; TEMP 96.8
== END 2017-01-19 23:30 ==
LOC: E/R 06:17
DX: F32.9 Major depressive disorder, single episode, unspecified (principal); R45.851 Suicidal ideations; F17.210 Nicotine dependence, cigarettes, uncomplicated; J45.909 Unspecified asthma, uncomplicated
CPT/HCPCS: 80053; 80306; 80307; 81003; 85025; Z7502; 99285

== ENCOUNTER 2017-01-28 22:37 | Emergency (ER) | payer MEDICAID ==
[~2017-01-28] VITALS: Ht 157.5 cm; Wt 57.0 kg
[2017-01-28 22:59] VITALS: Ht 157.5 cm; Wt 57.0 kg
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
[2017-01-29 03:18] LABS: URINE BLOOD (Dip) POC Negative (NEGATIVE)
[2017-01-29 03:21] LABS: ADD SCAN DIFF NO
[2017-01-29 03:35] LABS: BASOPHILS % 0.4 % (0.0-2.0); EOSINOPHILS % 0.7 % (0.0-7.0); HEMOGLOBIN 11.9 g/dl (12.0-16.0); LYMPHOCYTES % 36.5 % (15.0-51.0); MEAN CORPUSCULAR HEMOGLOBIN 24.9 pg (29.0-33.0); MEAN CORPUSCULAR HGB CONC 32.2 g/dl (32.0-37.0); MEAN CORPUSCULAR VOLUME 77.6 fl (82.0-101.0); MEAN PLATELET VOLUME 12.1 fl (7.4-10.4); MONOCYTE # 0.4 10^3/ul (0.3-0.9); MONOCYTES % 7.5 % (0.0-11.0); NEUTROPHILS % 54.7 % (39.0-77.0); PLATELET COUNT 222 10^3/UL (140-415); RED BLOOD COUNT 4.77 10^6/ul (4.20-5.40); RED CELL DISTRIBUTION WIDTH 14.3 % (11.5-14.5); WHITE BLOOD COUNT 5.5 10^3/ul (4.8-10.8)
[2017-01-29 03:55] LABS: ALBUMIN 4.3 g/dl (3.3-4.9)
[2017-01-29 03:56] LABS: CHLORIDE 107 mmol/L (97-110); POTASSIUM 3.6 mmol/L (3.5-5.1); SODIUM 144 mmol/L (135-144)
[2017-01-29 03:58] LABS: ALANINE AMINOTRANSFERASE 16 IU/L (13-69); ALBUMIN/GLOBULIN RATIO 1.26; ALKALINE PHOSPHATASE 94 IU/L (42-121); ANION GAP 15 (8-16); ASPARTATE AMINO TRANSFERASE 23 IU/L (15-46); BILIRUBIN,INDIRECT 0.2 mg/dl (0-1.1); BILIRUBIN,TOTAL 0.2 mg/dl (0.2-1.3); BLOOD UREA NITROGEN 10 mg/dl (7-20); CARBON DIOXIDE 26 mmol/L (21-31); CREATININE 0.72 mg/dl (0.44-1.00); GLUCOSE 112 mg/dl (70-220); TOTAL PROTEIN 7.7 g/dl (6.1-8.1)
[2017-01-29 03:59] LABS: ADD UMIC NO; URINE BILIRUBIN (Dip) NEGATIVE (NEGATIVE); URINE BLOOD (Dip) NEGATIVE (NEGATIVE); URINE COLOR LT. YELLOW (YELLOW); URINE GLUCOSE (Dip) NEGATIVE (NEGATIVE); URINE KETONES (Dip) NEGATIVE (NEGATIVE); URINE LEUKOCYTE ESTERASE (Dip) NEGATIVE (NEGATIVE); URINE NITRITE (Dip) NEGATIVE (NEGATIVE); URINE TOTAL PROTEIN (Dip) NEGATIVE (NEGATIVE); URINE UROBILINOGEN (Dip) 1.0 E.U./dL (0.1-1.0)
[2017-01-29 04:00] LABS: ACETAMINOPHEN < 10.0 ug/ml (10.0-30.0); ETHANOL < 10.0 mg/dl; SALICYLATE < 1.0 mg/dl (5.0-30.0)
[2017-01-29 04:25] LABS: BARBITURATES Negative (NEGATIVE); BENZODIAZEPINES Negative (NEGATIVE); CANNABINOIDS Negative (NEGATIVE); COCAINE Negative (NEGATIVE); OPIATES Negative (NEGATIVE)
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
[2017-01-29] MEDS ORDERED: GENTAMICIN 0.3% 5 ML OPH BOTH EYES ONE (05:00)
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
[2017-01-29 16:55] VITALS: BP 122/56; PULSE 68; RESP 18; TEMP 98.2
== END 2017-01-29 17:32 ==
LOC: E/R 22:37
DX: H10.9 Unspecified conjunctivitis (principal); D64.9 Anemia, unspecified; R45.851 Suicidal ideations; J45.909 Unspecified asthma, uncomplicated; F17.210 Nicotine dependence, cigarettes, uncomplicated
CPT/HCPCS: 36415; 80053; 80306; 80307; 81003; 85025; Z7502; Z7610; 99285

== ENCOUNTER 2017-02-12 00:51 | Emergency (ER) | payer MEDICAID ==
[~2017-02-12] VITALS: Ht 157.5 cm; Wt 52.5 kg
[2017-02-12 00:54] VITALS: Ht 157.5 cm; Wt 52.5 kg
[2017-02-12 02:02] LABS: ADD SCAN DIFF NO
[2017-02-12 02:06] LABS: BASOPHIL # 0.1 10^3/ul (0.0-0.1); EOSINOPHILS # 0.1 10^3/ul (0.0-0.5); EOSINOPHILS % 1.6 % (0.0-7.0); HEMATOCRIT 37.9 % (37.0-47.0); HEMOGLOBIN 11.9 g/dl (12.0-16.0); LYMPHOCYTES # 2.5 10^3/ul (0.8-2.9); MEAN CORPUSCULAR HGB CONC 31.4 g/dl (32.0-37.0); MEAN CORPUSCULAR VOLUME 76.4 fl (82.0-101.0); MEAN PLATELET VOLUME 11.7 fl (7.4-10.4); MONOCYTE # 0.3 10^3/ul (0.3-0.9); MONOCYTES % 6.3 % (0.0-11.0); NEUTROPHIL # 2.1 10^3/ul (1.6-7.5); NEUTROPHILS % 41.9 % (39.0-77.0); PLATELET COUNT 317 10^3/UL (140-415); RED BLOOD COUNT 4.96 10^6/ul (4.20-5.40); RED CELL DISTRIBUTION WIDTH 14.1 % (11.5-14.5); WHITE BLOOD COUNT 5.1 10^3/ul (4.8-10.8)
--- NOTE | 2017-02-12 02:09 | PSY ---
Date/Time of Note Date/Time of Note DATE: 02/12/17 TIME: 02:09 Psychiatric Subjective Eval Consent Pt consented to telemedicine: Yes Subjective Evaluation Patient location: emergency Chief Complaint: post depression x 2 weeks Hospitalization: yes Medical history Problems Medical Problems: (1) Abdominal pain Status: Acute (2) Anemia Status: Acute (3) Asymptomatic bacteriuria during Status: Acute (4) Bacterial conjunctivitis of both eyes Status: Acute (5) Bipolar disorder Status: Acute (6) Cervicitis Status: Acute (7) Cystitis Status: Acute (8) Depression Status: Acute (9) Depression Status: Acute (10) Depression Status: Acute (11) Depression Status: Acute (12) Depression Status: Acute (13) Depression Status: Acute (14) Depression Status: Acute (15) Depression Status: Acute (16) Depression Status: Acute (17) Depression Status: Acute (18) Depression Status: Acute (19) First trimester Status: Acute (20) Mood disorder Status: Acute (21) Suicidal ideation Status: Acute (22) Suicidal ideation Status: Acute (23) Suicidal ideation Status: Acute (24) Suicidal ideation Status: Acute (25) Suicidal ideation Status: Acute (26) Suicidal ideation Status: Acute (27) Suicidal ideation Status: Acute (28) Suicidal ideation Status: Acute (29) Suicidal ideation Status: Acute (30) Suicidal ideation Status: Acute (31) Suicidal ideation Status: Acute (32) Suicidal ideation Status: Acute (33) Suicidal ideations Status: Acute (34) UTI (urinary tract infection) Status: Acute Allergies: Coded Allergies: aripiprazole (Verified Allergy, Intermediate, 01/29/17) TONGUE SWELLS acetaminophen (Verified Allergy, Unknown, 01/29/17) haloperidol (Verified Allergy, Unknown, 01/29/17) fluphenazine (Verified Adverse Reaction, Intermediate, 01/29/17) TONGUE SWELLS Social History Marital status: single DPA/Conservatorship: No Assessment Additional comments: IDENTIFYING INFORMATION: 26 year old -[place] Female patient who is currently located at the hospital and for whom psychiatric consultation was requested. SOURCES OF INFORMATION: The patient who appears to be reliable and the medical records; the nursing staff. CHIEF COMPLAINT: "not my self, depressed and suicidal". HISTORY OF PRESENT ILLNESS: The patient was interviewed via telemedicine in the presence of and under the supervision of nursing staff of the hospital. The consent to conducting this interview via telemedicine was obtained by the nursing staff at the hospital. RN Pradeep reports that the patient was brought in by boyfriend with SI with thoughts of slicing her wrists. Is not on a hold. The patient reports that she has been depressed lately, admits to anhedonia, high energy level, sleeping for 5-7 hours per night, feeling hopeless, helpless , and having SI with thoughts of slicing her wrists. Denies having AH, VH, delusions. Pt reports that she has been noncompliant with her meds. The patient denies using alcohol heavily or regularly. The patient denies using any other substances. In terms of past psychiatric history, the patient reports having a history of past psychiatric hospitalizations. The patient reports that he has been diagnosed with bipolar disorder in the past and antidepressants make her irritable. The patient reports having a history of past suicide attempts by taking an OD of sertraline. 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 CURRENT MEDICATIONS: none. ALLERGIES TO MEDICATIONS: abilify, prolictin, haldol, tylenol. SOCIAL HISTORY: single, lives with boyfriend and 1 child; no firearms at home. LABORATORY TESTS: CMP with a globulin of 3.4, otherwise unremarkable, CBC with hemoglobin of 11.9, MCV 77.6, MCH 24.9. test negative, UDS is negative, Alcohol was not detected, REVIEW OF SYSTEMS: Constitutional (e.g., fever, weight loss): negative; Eyes, Ears, Nose, Mouth, Throat: negative; Cardiovascular: negative; Respiratory: negative; Gastrointestinal: negative; Genitourinary: negative; Musculoskeletal: negative; Integumentary (skin and/or breast): negative; Neurological: negative; Psychiatric: as per HPI; Endocrine: negative; Hematologic/Lymphatic: negative; Allergic/Immunologic: negative. MENTAL STATUS EXAMINATION: General Appearance and Behavior: Calm, cooperative with the interview, pleasant with the current interviewer, makes good eye contact, poorly groomed, no abnormal movements noted. Speech: Regular rate, regular rhythm, normal latency, normal volume, normal amount. Flow of thought: sequential, logical, goal-directed. Content of thought: no auditory hallucinations, no visual hallucinations, no delusions, positive for suicidal ideation; no homicidal ideation. Mood: "depressed". Affect: dysthymic, dysphoric, not reactive. Attention: normal based on the interview. Insight: fair. Judgment: poor. Memory: normal based on the interview. Sensorium: alert and oriented to person, place and date. ASSESSMENT: The patient's presentation and history are consistent with the diagnosis of unspecified depressive disorder. Pt with a history of bipolar disorder presents with a major depressive episode in the context of medication noncompliance. [place] I: unspecified depressive disorder. [place] II: Deferred. [place] III: see PMH. [place] IV: social stressors. [place] V: GAF: 20. PLAN: - Medication management: Would start Geodon 10 mg IM PRN agitation [id number]; do not exceed 40 mg/24 hours x 3 days Would start diphenhydramine 50 mg IM PRN severe agitation q4 hours. Will defer to the inpatient psychiatry team for other medication changes. - Labs: No other laboratory tests are needed at this time. - Psychotherapy: Provided supportive psychotherapy and psychoeducation. - Disposition: Would recommend involuntary admission to the inpatient psychiatric unit given the severity of the patient's psychiatric condition and the fact that the patient is an imminent danger to self and/or others so long as the patient has been cleared medically for admission to psychiatry. Inpatient psychiatric admission is at this time the least restrictive environment where the patient can receive the psychiatric care that is needed. Would place on suicide precautions. The patient fulfills criteria for being placed on involuntary hold due to being a danger to self. Discussed about the above plan with Dr. Lopez. RUPERT MONTEIRO MD Feb 12, 2017 02:09
[2017-02-12 02:11] LABS: ALBUMIN 4.4 g/dl (3.3-4.9); CHLORIDE 109 mmol/L (97-110); SODIUM 146 mmol/L (135-144)
[2017-02-12 02:12] LABS: POTASSIUM 3.6 mmol/L (3.5-5.1)
[2017-02-12 02:13] LABS: BILIRUBIN,INDIRECT 0.5 mg/dl (0-1.1); BILIRUBIN,TOTAL 0.5 mg/dl (0.2-1.3); CREATININE 0.72 mg/dl (0.44-1.00)
[2017-02-12 02:14] LABS: ALANINE AMINOTRANSFERASE 19 IU/L (13-69); ALBUMIN/GLOBULIN RATIO 1.46; ALKALINE PHOSPHATASE 91 IU/L (42-121); ANION GAP 16 (8-16); ASPARTATE AMINO TRANSFERASE 19 IU/L (15-46); BLOOD UREA NITROGEN 15 mg/dl (7-20); CALCIUM 9.3 mg/dl (8.4-10.2); CARBON DIOXIDE 25 mmol/L (21-31); GLUCOSE 96 mg/dl (70-220); TOTAL PROTEIN 7.4 g/dl (6.1-8.1)
[2017-02-12 02:26] LABS: ACETAMINOPHEN < 10.0 ug/ml (10.0-30.0); ETHANOL < 10.0 mg/dl; SALICYLATE < 1.0 mg/dl (5.0-30.0)
[2017-02-12 02:42] LABS: ADD UMIC YES; URINE BILIRUBIN (Dip) NEGATIVE (NEGATIVE); URINE BLOOD (Dip) NEGATIVE (NEGATIVE); URINE COLOR LT. YELLOW (YELLOW); URINE GLUCOSE (Dip) NEGATIVE (NEGATIVE); URINE KETONES (Dip) NEGATIVE (NEGATIVE); URINE LEUKOCYTE ESTERASE (Dip) TRACE (NEGATIVE); URINE NITRITE (Dip) NEGATIVE (NEGATIVE); URINE TOTAL PROTEIN (Dip) NEGATIVE (NEGATIVE); URINE UROBILINOGEN (Dip) 1.0 E.U./dL (0.1-1.0)
--- NOTE | 2017-02-12 02:46 | ERA ---
ER Documentation Chief Complaint Date/Time DATE: 02/12/17 Chief Complaint Suicidal ideation HPI The patient is a 26-year-old female, presenting to the ER because suicidal ideation. She does not have any plan. She has been off psychiatric medication for a month. He denies auditory, visual hallucination, homicidal ideation. He denies headache, neck pain, chest pain, abdominal pain, vomiting, dysuria, diarrhea. She does not smoke or drink Past medical history: Bipolar ROS All systems reviewed and are negative except as per history of present illness. Medications Home Meds Active Scripts Oxcarbazepine* (Trileptal*) 300 Mg Tablet, 300 MG PO BID for 30 Days, TAB Prov:RODDY CHARLES MD 12/13/16 Oxcarbazepine* (Trileptal*) 150 Mg Tablet, 150 MG PO BID for 7 Days, TAB Prov:RODDY CHARLES MD 12/13/16 Bupropion Hcl* (Wellbutrin XL*) 300 Mg Tab.sr.24h, 300 MG PO DAILY, #30 TAB.SA Prov:RODDY CHARLES MD 12/13/16 Reported Medications [place] Carbonate* ([place]*) 300 Mg Cap, 300 MG PO BID, CAP 12/12/16 Sertraline Hcl* (Zoloft*) 100 Mg Tablet, 100 MG PO QAM, #30 TAB 12/12/16 Allergies Allergies: Coded Allergies: aripiprazole (Verified Allergy, Intermediate, 01/29/17) TONGUE SWELLS acetaminophen (Verified Allergy, Unknown, 01/29/17) haloperidol (Verified Allergy, Unknown, 01/29/17) fluphenazine (Verified Adverse Reaction, Intermediate, 01/29/17) TONGUE SWELLS PMhx/Soc History of Surgery: Yes (C SECTION x1) Anesthesia Reaction: No Hx Neurological Disorder: No Hx Respiratory Disorders: Yes (asthma) Hx Cardiac Disorders: No Hx Psychiatric Problems: Yes (bipolar depression, depression, suicidal attempt.) Hx Miscellaneous Medical Probl: No Hx Alcohol Use: No Hx Substance Use: No Hx Tobacco Use: Yes Smoking Status: Current every day smoker Physical Exam Vitals Vital Signs Date Time Temp Pulse Resp B/P Pulse Ox O2 Delivery O2 Flow Rate FiO2 02/12/17 01:55 97.6 69 20 106/50 97 Room Air 02/12/17 00:54 98.0 68 17 99/69 98 Physical Exam Const: No acute distress. Head: Atraumatic. Eyes: Normal Conjunctiva. ENT: Normal External Ears, Nose and Mouth. Neck: Full range of motion. No meningismus. Resp: Clear to auscultation bilaterally. Cardio: Regular rate and rhythm, no murmurs. Abd: Soft, non distended, normal bowel sounds, non tender. Skin: No petechiae or rashes. Back: No midline or flank tenderness. Ext: No cyanosis, or edema. Neur: Awake and alert. No focal deficit Psych: Depressed and suicidal Result Diagram: 02/12/17 0151 02/12/17 0151 Results 24 hrs Laboratory Tests Test 02/12/17 01:51 02/12/17 02:27 White Blood Count 5.110^3/ul Red Blood Count 4.9610^6/ul Hemoglobin 11.9g/dl Hematocrit 37.9% Mean Corpuscular Volume 76.4fl Mean Corpuscular Hemoglobin 24.0pg Mean Corpuscular Hemoglobin Concent 31.4g/dl Red Cell Distribution Width 14.1% Platelet Count 53564^3/UL Mean Platelet Volume 11.7fl Neutrophils % 41.9% Lymphocytes % 49.0% Monocytes % 6.3% Eosinophils % 1.6% Basophils % 1.0% Nucleated Red Blood Cells % 0.0/100WBC Neutrophils # 2.110^3/ul Lymphocytes # 2.510^3/ul Monocytes # 0.310^3/ul Eosinophils # 0.110^3/ul Basophils # 0.110^3/ul Nucleated Red Blood Cells # 0.010^3/ul Sodium Level 146mmol/L Potassium Level 3.6mmol/L Chloride Level 109mmol/L Carbon Dioxide Level 25mmol/L Anion Gap 16 Blood Urea Nitrogen 15mg/dl Creatinine 0.72mg/dl Glucose Level 96mg/dl Calcium Level 9.3mg/dl Total Bilirubin 0.5mg/dl Direct Bilirubin 0.00mg/dl Indirect Bilirubin 0.5mg/dl Aspartate Amino Transf (AST/SGOT) 19IU/L Alanine Aminotransferase (ALT/SGPT) 19IU/L Alkaline Phosphatase 91IU/L Total Protein 7.4g/dl Albumin 4.4g/dl Globulin 3.00g/dl Albumin/Globulin Ratio 1.46 Salicylates Level < 1.0mg/dl Acetaminophen Level < 10.0ug/ml Ethyl Alcohol Level < 10.0mg/dl Urine Color LT. YELLOW Urine Clarity CLEAR Urine pH 6.5 Urine Specific [place] 1.015 Urine Ketones NEGATIVE Urine Nitrite NEGATIVE Urine Bilirubin NEGATIVE Urine Urobilinogen 1.0 E.U./dL Urine Leukocyte Esterase TRACE Urine Microscopic RBC Pending Urine Microscopic WBC Pending Urine Hemoglobin NEGATIVE Urine Glucose NEGATIVE% Urine Total Protein NEGATIVE Procedures/MDM MEDICAL MAKING DECISION: The patient is a 26-year-old female, presenting with acute suicidal ideation, medical noncompliance. The differential diagnoses considered include but are not limited to, decompensated psychiatric illness, depression, anxiety Departure Diagnosis: Primary Impression: Suicidal ideation Additional Impression: Anemia Comments I discussed the patient with the telepsychiatrist who put her on 5150 hold ISAIAS ESCOBEDO MD Feb 12, 2017 02:46
[2017-02-12 03:01] LABS: BACTERIA,URINE RARE; SQUAMOUS EPITHELIAL CELL,UR RARE; URINE RBCS 0-2 /HPF (0)
[2017-02-12 03:03] LABS: BARBITURATES Negative (NEGATIVE); BENZODIAZEPINES Negative (NEGATIVE); CANNABINOIDS Negative (NEGATIVE); COCAINE Negative (NEGATIVE); OPIATES Negative (NEGATIVE)
[2017-02-13] MEDS ORDERED: IBUPROFEN 200 MG TAB PO ONE (01:30)
[2017-02-13] MEDS ORDERED: OLANZAPINE (ODT) 5 MG TAB ODT STA (15:25)
[2017-02-13] MEDS ORDERED: OLANZAPINE 10 MG VIAL IM ONE (16:00)
[2017-02-13] MEDS ORDERED: MIDAZOLAM 1 MG/ML 2 ML INJ ONE (16:13)
[2017-02-13 16:40] VITALS: BP 128/65; PULSE 88; RESP 18; TEMP 98.5
== END 2017-02-13 16:40 ==
LOC: E/R 00:51
DX: D64.9 Anemia, unspecified (principal); R45.851 Suicidal ideations; J45.909 Unspecified asthma, uncomplicated; F17.210 Nicotine dependence, cigarettes, uncomplicated
CPT/HCPCS: 80053; 80306; 80307; 81001; 81003; 85025; J2250; 36415; 99285